=== PATIENT | male | born 1960 | race African-American/Black ===

== ENCOUNTER 2021-12-24 16:53 | Inpatient (IN) ==
--- NOTE | 2021-12-24 17:12 | Emergency Department Note ---
Impression & Plan NSTEMI (non-ST elevated myocardial infarction) ADMIT ED Provider Note HPI: The patient is a 61-year-old gentleman with history of insulin-dependent diabetes, presents emergency department with a chief complaint of transient episodes of chest discomfort for the past week. Patient presents from shelter, states that over the past week when he is at rest and when he does certain activities he is getting some substernal chest pain that is in the upper part of his chest. Patient states this is happening when he walks down the hallway he does get some upper chest discomfort. He describes it is very severe in nature. Patient states that at times at rest he just has a substernal pressure. On arrival here to the ED the patient is in no acute distress, he states he is not having much discomfort at rest. He is saturating well on room air. He is noted to be hypertensive on arrival. ROS: -Cardio: Chest pain *10 point review systems was conducted and is otherwise negative unless stated above *Outpatient medications and allergy history reviewed PE: General: Alert, NAD HEENT: Normocephalic, atraumatic Eyes: Extraocular eye movement is intact, no scleral erythema Pulmonary: Clear to auscultation bilaterally, no wheezing Cardio: Regular rate and rhythm GI: Abdomen is soft, nontender : No suprapubic tenderness MSK: No evidence of trauma or malformation of the extremities, no edema Skin: No evidence of rash Neuro: Alert, no focal deficits Psychiatric: Cooperative threat monitoring analyst: - An order was placed for continuous cardiac monitoring - Patient was noted to be in sinus rhythm with rate of 58 EKG #1 Rate: 63 Rhythm: Normal sinus rhythm Intervals: Within normal limits ST changes: No ST elevation Time: 1705 EKG #2 Rate: 55 Rhythm: Sinus bradycardia Intervals: Within normal limits ST changes: No ST elevation Time: 1842 Medical Decision Making: Patient presented to the emergency department with a chief complaint of transient episodes of chest discomfort over the past week. On arrival he is noted to be hypertensive, IV was established, lab work obtained, patient was placed on threat monitoring analyst, initially declined any pain medication as he stated he was not having much pain at rest. EKG does not show any acute ischemic changes, appears similar to previous, troponin did result markedly elevated at approximately 18,000. CT angiography of the chest was obtained that shows no evidence of pulmonary embolism, no evidence of aortic dissection. Patient was initiated on heparin drip and given aspirin here in the ED. He was ordered morphine and Zofran. Case was discussed with on-call interventional cardiology, Dr. Sapp, who agrees with heparin drip, recommend starting nitroglycerin drip as the patient does have some mild chest "pressure" but no pain on my reassessment, states the patient should be admitted to medicine with cardiology consultation. Case was discussed with the on-call hospitalist for [facility], Dr. Izaguirre, patient was admitted in stable condition for further care and interventional cardiology consultation. * CRITICAL CARE TIME: 60 minutes -Time spent at the bedside, interpretation of diagnostic studies including EKG and patient with elevated troponin and chest pain, initiation of heparin drip, discussion with subspecialty services/interventional cardiology, arrangement of admission Diagnosis: 1. Chest pain, acute 2. Elevated troponin level 3. Hypertension Disposition: Admission Scott Peters DO Emergency Medicine Past Med/Surg History Medical History (Updated 12/24/21 @ 21:06 by Scott Peters DO) Diabetes type 2, uncontrolled GERD (gastroesophageal reflux disease) Hepatitis C Hyperlipidemia Hypertension NSTEMI (non-ST elevated myocardial infarction) Schizophrenia Family History (Updated 12/24/21 @ 20:41 by Joseluis Montoya MD) Father Myocardial infarction Mother Heart disease Social History (Updated 12/24/21 @ 20:43 by Joseluis Montoya MD) Smoking Status: Current every day smoker Tobacco Type: E-cigarettes / Vaping [facility]: Yes Allergies Allergies Allergy/AdvReac Type Severity Reaction Status Date / Time No Known Allergies Allergy Unverified 12/24/21 20:04 Results & Data (ED) Vital Signs Vital Signs - 24 hr 12/24/21 17:07 12/24/21 17:14 12/24/21 17:14 Pulse Rate 62 Pulse Rate [Right Finger] Pulse Rhythm [Right Finger] Pulse Strength [Right Finger] Respiratory Rate 18 Respiratory Effort / Characteristics Non-Labored Respiratory Depth Normal Blood Pressure 179/107 H Blood Pressure [Left Arm] Blood Pressure Mean 131 Blood Pressure Mean [Left Arm] Pulse Oximetry 96 98 Oxygen Delivery Method Room Air Room Air Room Air Sepsis Recent Fever Within 48 Hours No Sepsis New/Unexplained Change in Mental Status No Sepsis Action Taken by Nursing No Action Required Pulse Oximetry Post Tiitration 98 12/24/21 17:14 12/24/21 19:31 12/24/21 19:56 Pulse Rate Pulse Rate [Right Finger] 595 H 54 L Pulse Rhythm [Right Finger] Regular Regular Pulse Strength [Right Finger] Normal Normal Respiratory Rate 18 16 Respiratory Effort / Characteristics Respiratory Depth Normal Blood Pressure Blood Pressure [Left Arm] 179/107 H 202/124 H 203/130 H Blood Pressure Mean Blood Pressure Mean [Left Arm] 131 150 154 Pulse Oximetry 95 95 Oxygen Delivery Method Room Air Room Air Sepsis Recent Fever Within 48 Hours Sepsis New/Unexplained Change in Mental Status Sepsis Action Taken by Nursing Pulse Oximetry Post Tiitration 12/24/21 20:16 Pulse Rate Pulse Rate [Right Finger] Pulse Rhythm [Right Finger] Pulse Strength [Right Finger] Respiratory Rate Respiratory Effort / Characteristics Respiratory Depth Blood Pressure Blood Pressure [Left Arm] 189/118 H Blood Pressure Mean Blood Pressure Mean [Left Arm] 141 Pulse Oximetry Oxygen Delivery Method Sepsis Recent Fever Within 48 Hours Sepsis New/Unexplained Change in Mental Status Sepsis Action Taken by Nursing Pulse Oximetry Post Tiitration Laboratory Data Result diagrams: 12/24/21 17:15 12/24/21 17:15 Lab Results 12/24/21 12/24/21 12/24/21 Range/Units 17:11 17:15 17:15 WBC 7.17 (4.8-10.8) K/ul RBC 4.65 (4.63-6.08) M/uL Hgb 13.6 L (14.0-18.0) g/dl Hct 37.4 L (40.1-51.0) % MCV 80.4 (80.0-100.0) fL MCH 29.2 (25.0-34.0) pg MCHC 36.4 H (32.0-36.0) g/dL RDW Std Deviation 40.5 (36.4-46.3) fL RDW Coeff of Margarita 14.0 (11.5-14.5) % Plt Count 248 (130-400) K/uL MPV 10.5 (9.4-12.4) fL Immature Gran % (Auto) 0.3 % Neut % (Auto) 48.9 % Lymph % (Auto) 40.9 % Fisher % (Auto) 8.5 % Eos % (Auto) 0.8 % Baso % (Auto) 0.6 % Neut # (Auto) 3.51 (1.4-6.5) K/uL Lymph # (Auto) 2.93 (1.2-3.4) K/uL Fisher # (Auto) 0.61 (0.24-0.82) K/uL Eos # (Auto) 0.06 (0-0.50) K/uL Baso # (Auto) 0.04 (0-0.2) K/uL Immature Gran # (Auto) 0.02 (0.00-0.02) K/uL PT 10.6 (9.0-12.0) Seconds INR 1.0 (0.9-1.1) APTT 25.9 (21.0-31.0) Seconds PTT Ratio 0.9 D-Dimer 1070 H* (0-500) ug/L FEU Sodium 137 (136-145) mmol/L Potassium 4.0 (3.5-5.1) mmol/L Chloride 104 (98-107) mmol/L Carbon Dioxide 24 (21-32) mmol/L Anion Gap 9 (3-11) BUN 18 (6-23) mg/dl Creatinine 1.35 (0.6-1.4) mg/dl Est Cr Clr Drug Dosing 67.4 ml/min Est GFR ( Amer) 64.8 ml/min Est GFR (Non-Af Amer) 55.9 ml/min BUN/Creatinine Ratio 13.3 (10-20) Glucose 167 H (70-99(Fasting)) mg/dl Calcium 10.0 (8.5-10.1) mg/dl Total Bilirubin 0.6 (0.2-1.0) mg/dl AST 30 (13-39) U/L ALT 26 (7-52) U/L Alkaline Phosphatase 53 (34-104) U/L Troponin I High Sens 1797.5 H* (0-20) pg/ml Total Protein 7.7 (6.0-8.3) gm/dl Albumin 4.4 (3.4-5.0) gm/dl Globulin 3.3 (2.5-4.0) gm/dl Albumin/Globulin Ratio 1.3 (0.9-2) Lipase 22 (11-82) U/L 12/24/21 Range/Units 19:06 WBC (4.8-10.8) K/ul RBC (4.63-6.08) M/uL Hgb (14.0-18.0) g/dl Hct (40.1-51.0) % MCV (80.0-100.0) fL MCH (25.0-34.0) pg MCHC (32.0-36.0) g/dL RDW Std Deviation (36.4-46.3) fL RDW Coeff of Margarita (11.5-14.5) % Plt Count (130-400) K/uL MPV (9.4-12.4) fL Immature Gran % (Auto) % Neut % (Auto) % Lymph % (Auto) % Fisher % (Auto) % Eos % (Auto) % Baso % (Auto) % Neut # (Auto) (1.4-6.5) K/uL Lymph # (Auto) (1.2-3.4) K/uL Fisher # (Auto) (0.24-0.82) K/uL Eos # (Auto) (0-0.50) K/uL Baso # (Auto) (0-0.2) K/uL Immature Gran # (Auto) (0.00-0.02) K/uL PT (9.0-12.0) Seconds INR (0.9-1.1) APTT (21.0-31.0) Seconds PTT Ratio D-Dimer (0-500) ug/L FEU Sodium (136-145) mmol/L Potassium (3.5-5.1) mmol/L Chloride (98-107) mmol/L Carbon Dioxide (21-32) mmol/L Anion Gap (3-11) BUN (6-23) mg/dl Creatinine (0.6-1.4) mg/dl Est Cr Clr Drug Dosing ml/min Est GFR ( Amer) ml/min Est GFR (Non-Af Amer) ml/min BUN/Creatinine Ratio (10-20) Glucose (70-99(Fasting)) mg/dl Calcium (8.5-10.1) mg/dl Total Bilirubin (0.2-1.0) mg/dl AST (13-39) U/L ALT (7-52) U/L Alkaline Phosphatase (34-104) U/L Troponin I High Sens 2331.3 H* D (0-20) pg/ml Total Protein (6.0-8.3) gm/dl Albumin (3.4-5.0) gm/dl Globulin (2.5-4.0) gm/dl Albumin/Globulin Ratio (0.9-2) Lipase (11-82) U/L Administered Medications Heparin Sodium/Dextrose (Heparin Sodium/Dextrose) 25,000 units in 500 mls @ 30 mls/hr IV .[id number] J LUIS; Protocol Stop: 01/23/22 19:14 Last Admin: 12/24/21 19:15 Dose: 1,500 units/hr, 30 mls/hr Documented By: LONNIE Co-signed By: JOANA Nitroglycerin/Dextrose (Nitroglycerin/D5w 100 Mcg/Ml) 250 mls @ 3 mls/hr IV .Q24H [facility] Stop: 01/23/22 18:59 Last Admin: 12/24/21 19:03 Dose: 5 mcg/min, 3 mls/hr Documented By: MARIA VICTORIA Co-signed By: LNONIE Miscellaneous Information (Patient's Allergy Info Needs Entered) 1 each N/A Q30M [facility] Stop: 01/23/22 19:59 Last Admin: 12/24/21 20:07 Dose: 1 each Documented By: LONNIE Discontinued Medications Heparin Sodium (Porcine) (Heparin Sod (Porcine) 1000 Unit/Ml) 1 units IV NOW ONE Stop: 12/24/21 19:03 Last Admin: 12/24/21 20:04 Dose: Not Given Documented By: LONNIE Heparin Sodium (Porcine) (Heparin Sod (Porcine) 1000 Unit/Ml) 7,000 units IV NOW ONE Stop: 12/24/21 20:56 Last Admin: 12/24/21 19:16 Dose: 7,000 units Documented By: LONNIE Co-signed By: JOANA Heparin Sodium/Dextrose (Heparin Iv Adult Wt-Based Standard With Bolus Protocol) 1 each IV Q5M STA; Protocol Stop: 12/24/21 19:03 Last Admin: 12/24/21 19:20 Dose: Not Given Documented By: LONNIE Hydralazine HCl (Hydralazine Hcl 20 Mg/Ml Vial) 10 mg IV NOW STA Stop: 12/24/21 19:43 Last Admin: 12/24/21 20:00 Dose: 10 mg Documented By: MES Ioversol (Optiray 320 125ml) 118 ml IV ONCE ONE Stop: 12/24/21 18:28 Last Admin: 12/24/21 18:28 Dose: 118 ml Documented By: WILSON Miscellaneous (Stat Iv Infusion Titration Per Protocol) 1 each N/A NOW STA Stop: 12/24/21 18:57 Last Admin: 12/24/21 19:20 Dose: Not Given Documented By: LONNIE Morphine Sulfate (Morphine Sulfate 4 Mg/Ml 1 Ml Carp\\Vial) 4 mg IV NOW STA Stop: 12/24/21 18:21 Last Admin: 12/24/21 18:35 Dose: 4 mg Documented By: LONNIE Ondansetron HCl (Ondansetron Inj 2 Mg/Ml 2 Ml Vial) 4 mg IV NOW STA Stop: 12/24/21 18:21 Last Admin: 12/24/21 18:35 Dose: 4 mg Documented By: LONNIE Imaging Data Radiologist's Impression: Chest X-Ray 12/24/21 17:10 XR chest 1V portable CLINICAL HISTORY: Chest Pain TECHNIQUE: Single frontal radiograph of the chest was obtained. Comparison: None available at the time of this dictation. FINDINGS: No lines and tubes are seen. The cardiomediastinal silhouette is normal. The lungs are clear. No evidence of pleural effusion or pneumothorax. IMPRESSION: No acute chest disease. ACT 112: Negative or not required by law. Electronically signed by: Jerry Perez M.D. 12/24/2021 5:29 PM Chest CTA 12/24/21 18:08 CT angio chest PE protocol CLINICAL HISTORY: PE TECHNIQUE: Multidetector row helical CT of the chest was performed with angiographic protocol. Coronal and sagittal reformations were obtained. Coronal and sagittal MIPS were obtained from the axial data set and were submitted for review. Automated dose lowering techniques and/or adjustment according to patient size were utilized for this exam. CT DOSE: 845.13 mGy.cm Comparison: Comparison is made to chest radiograph 12/24/2021 FINDINGS: Lungs and pleura: Paraseptal emphysematous changes are seen. Atelectasis versus scarring is seen in the dependent portions of the lungs. Multiple pleural-based nodules are seen including a 3 mm nodule in the left lower lobe (series 4 image 143) and a 6 mm nodule in the right middle lobe (image 121). There is also a 4 mm fissural nodule on the right (image 145). Heart and pericardium: Heart size is normal. No pericardial effusion. Vessels: No evidence of pulmonary embolism. Mediastinum and tonya: Subcentimeter lymph nodes are seen. Chest wall and lower neck: Unremarkable. Abdomen: Partial visualization of a right renal cyst. A splenule is noted. Bones: Degenerative changes in the thoracic spine. IMPRESSION: 1. No evidence of pulmonary embolism. 2. Tiny pulmonary nodules as above. According to Fleischner criteria, no follow-up is required in low risk patients, in high-risk patients, a 12 month follow-up CT can be optionally performed. 3. Emphysema. ACT 112: Negative or not required by law. Electronically signed by: Jerry Perez M.D. 12/24/2021 6:38 PM Discharge Plan Visit Data Chief Complaint: Chest Pain Stated Complaint: CHEST PAIN ED Provider: Scott Peters Discharge Problem: NSTEMI (non-ST elevated myocardial infarction) Patient Disposition: Admitted As Inpatient Forms Stand Alone Forms: [facility] Referrals Referrals: Loyda MAYER [Primary Care Provider] -
[2021-12-24 17:27] LABS: Basophils # (auto) 0.04 K/uL (0-0.2); Basophils % (auto) 0.6 %; Eosinophils # (auto) 0.06 K/uL (0-0.50); Eosinophils % (auto) 0.8 %; Hematocrit (blood only) 37.4 % (40.1-51.0); Hemoglobin 13.6 g/dl (14.0-18.0); Immature Granulocytes # (auto) 0.02 K/uL (0.00-0.02); Immature Granulocytes % (auto) 0.3 %; Lymphocytes # (auto) 2.93 K/uL (1.2-3.4); Lymphocytes % (auto) 40.9 %; Mean Corpuscular Hemoglobin 29.2 pg (25.0-34.0); Mean Corpuscular Hgb Conc 36.4 g/dL (32.0-36.0); Mean Corpuscular Volume 80.4 fL (80.0-100.0); Mean Platelet Volume 10.5 fL (9.4-12.4); Monocytes # (auto) 0.61 K/uL (0.24-0.82); Monocytes % (auto) 8.5 %; Neutrophils # (auto) 3.51 K/uL (1.4-6.5); Neutrophils % (auto) 48.9 %; Platelet Count 248 K/uL (130-400); RDW Standard Deviation 40.5 fL (36.4-46.3); Red Blood Count 4.65 M/uL (4.63-6.08); White Blood Count 7.17 K/ul (4.8-10.8)
--- NOTE | 2021-12-24 17:31 | XRay Report ---
XR chest 1V portable CLINICAL HISTORY: Chest Pain TECHNIQUE: Single frontal radiograph of the chest was obtained. Comparison: None available at the time of this dictation. FINDINGS: No lines and tubes are seen. The cardiomediastinal silhouette is normal. The lungs are clear. No evid ence of pleural effusion or pneumothorax. IMPRESSION: No acute chest disease. ACT 112: Negative or not required by law. Electronically signed by: Jerry Perez M.D. 12/24/2021 5:29 PM
[2021-12-24 17:55] LABS: Albumin Globulin Ratio 1.3 (0.9-2); Albumin Level 4.4 gm/dl (3.4-5.0); BUN Creatinine Ratio 13.3 (10-20); Bilirubin,Total 0.6 mg/dl (0.2-1.0); Creatinine Clr Calc Pharmacy 67.4 ml/min; Est GFR (African American) 64.8 ml/min; Est GFR (Non-African American) 55.9 ml/min; Globulin 3.3 gm/dl (2.5-4.0); Total Protein 7.7 gm/dl (6.0-8.3)
[2021-12-24 18:00] LABS: Partial Thromboplastin Ratio 0.9; Partial Thromboplastin Time 25.9 Seconds (21.0-31.0); Prothrombin Time 10.6 Seconds (9.0-12.0)
[2021-12-24 18:07] LABS: D Dimer 1070 ug/L FEU (0-500)
[2021-12-24 18:13] LABS: Troponin I High Sensitivity 1797.5 pg/ml (0-20)
[2021-12-24] MEDS ORDERED: ONDANSETRON INJ 2 MG/ML 2 ML VIAL IV STA (18:20)
[2021-12-24] MEDS ORDERED: MoRPHine SULFATE 4 MG/ML 1 ML CARP\\VIAL IV STA (18:20)
[2021-12-24] MEDS ORDERED: OPTIRAY 320 125ml IV ONE (18:27)
--- NOTE | 2021-12-24 18:40 | CT Scan Report ---
CT angio chest PE protocol CLINICAL HISTORY: PE TECHNIQUE: Multidetector row helical CT of the chest was performed with angiographic protocol. Garcia l and sagittal reformations were obtained. Coronal and sagittal MIPS were obtained from the axial janet a set and were submitted for review. Automated dose lowering techniques and/or adjustment according to patient size were utilized for this exam. CT DOSE: 845.13 mGy.cm Comparison: Comparison is made to chest radiograph 12/24/2021 FINDINGS: Lungs and pleura: Paraseptal emphysematous changes are seen. Atelectasis versus scarring is seen in t he dependent portions of the lungs. Multiple pleural-based nodules are seen including a 3 mm nodule i n the left lower lobe (series 4 image 143) and a 6 mm nodule in the right middle lobe (image 121). Th ere is also a 4 mm fissural nodule on the right (image 145). Heart and pericardium: Heart size is normal. No pericardial effusion. Vessels: No evidence of pulmonary embolism. Mediastinum and tonya: Subcentimeter lymph nodes are seen. Chest wall and lower neck: Unremarkable. Abdomen: Partial visualization of a right renal cyst. A splenule is noted. Bones: Degenerative changes in the thoracic spine. IMPRESSION: 1. No evidence of pulmonary embolism. 2. Tiny pulmonary nodules as above. According to Fleischner criteria, no follow-up is required in lo w risk patients, in high-risk patients, a 12 month follow-up CT can be optionally performed. 3. Emphysema. ACT 112: Negative or not required by law. Electronically signed by: Jerry Perez M.D. 12/24/2021 6:38 PM
[2021-12-24] MEDS ORDERED: STAT IV Infusion **Titration per Protocol STA ×2 (18:56→23:19)
[2021-12-24] MEDS ORDERED: NITROGLYCERIN/D5W 100MCG/ML 250 ML IV SCH ×2 (19:00→23:30)
[2021-12-24] MEDS ORDERED: Heparin IV Adult Wt-Based Standard WITH Bolus Protocol IV STA (19:02)
[2021-12-24] MEDS ORDERED: HEPARIN SOD (PORCINE) 1000 UNIT/ML IV ONE ×2 (19:02→20:55)
[2021-12-24] MEDS ORDERED: Heparin IV Adult Wt-Based Standard WITH Bolus Protocol IV SCH (19:15)
[2021-12-24] MEDS: HEPARIN SODIUM/DEXTROSE 25,000 UNITS/500 ML BAG IV SCH (19:15)
--- NOTE | 2021-12-24 19:38 | History & Physical Report ---
Date of Service December 24, 2021 Assessment & Plan (1) NSTEMI (non-ST elevated myocardial infarction): Plan: 61 year old male w/ DM2 on insulin, GERD, htn, hep c, HLD, schizophrenia, angina who presents from [facility] for a week of mid upper chest pain w/ ecg and tro p concerning for NSTEMI. - MARY JO score 4 points: 20% risk at 14 days of: all-cause mortality, new or recurrent UT, or severe recurrent ischemia requiring urgent revascularization. - ecg t wave inversions of inferolateral distribution, leads 1-2 - w/ bradycardia, caution against rate-lowering agents. - BPs noted in ED, 180s+ systolic, may represent chronicly uncontrolled htn; caution against aggressive lowering - echo ordered - trend trop - repeat ecg w/ exacerbation of chest pain - consult interventional cardiology Dr. Sapp - ICU consult because requiring nitro drip in context of developing NSTEMI. titrate per ICU protocol (2) Hypertension: Plan: - continue home lisinopril in the morning. - currently receiving nitro drip - hydralazine prn (3) Hyperlipidemia: Plan: - continue home atorvastatin 40. giving first dose now. - patient states that he had taken himself off of this and several other meds because he believed it contributed to bleeding issues in the past. Counseled on nsaid use. (4) Schizophrenia: Plan: - continue home sertraline. Home trihexyphenidyl and perphenazine: deferring to day team to resume. (5) GERD (gastroesophageal reflux disease): Plan: - continue home PPI (6) Diabetes type 2, uncontrolled: Plan: - ICU hyperglycemia protocol (7) Tobacco use disorder: Plan: - current nicotine vaper, unknown amount - consider nicotine patch if requested (8) Lung nodules: Plan: - per CTA: "Multiple pleural-based nodules are seen including a 3 mm nodule in the left lower lobe (series 4 image 143) and a 6 mm nodule in the right middle lobe (image 121). There is also a 4 mm fissural nodule on the right (image 145). According to Fleischner criteria, no follow-up is required in low risk patients, in high-risk patients, a 12 month follow-up CT can be optionally performed." - patient may be considered high risk from his tobacco use. consider 12 month f/u CT Plan FEN/GI: NPO, allow meds. No IV fluids ordered. anticoag: heparin drip code: full dispo: ICU History of Present Illness Chief Complaint: chest pain Primary Care Provider: [facility] 61 year old male w/ DM2 on insulin, GERD, htn, hep c, HLD, schizophrenia, angina who presents from [facility] for episodes of mid-upper chest pain since 12/19/21. It is exertional such as with walking and is also exacerbated by certain positions/body movements. He has had daily episodes this week and the pain would last for hours, relieved by baby aspirin and nitroglycerin. He describes it as a throbbing pain in the upper chest just below his neck though per EMS report, was midsternal pressure. Per [facility] records, he was taking too many of the nitroglycerins so they discontinued and started isosorbide dinitrate. Today, at 130pm, patient was walking casually on his way to a [employer] game when he developed 10/10 chest pain at its worse. There was associated diaphoresis and radiation to his bilateral arms, no nausea. There was some discomfort at his left ribs below the chest. 2 aspirins did not provide relief of his symptoms and ecg showed new t wave inversions concerning for developing ischemia, so he was brought to [facility] ED. His pain did subside prior to ED arrival after >1-2 hours duration of discomfort, but has had intermittently. His current pain level is 1/10 and is receiving nitro drip at 5 mcg/hr. ED course: Heparin drip, nitro drip, and morphine. BP was elevated to 203/130 w/ HR in the 50s. Hydralazine 10mg IV. notable data: d dimer 1070. Cr 1.35. hx trop 1797.5, 2331 after 2 hours. chest CTA w/o PE. ecg w/ t wave inversions in leads 1-[address]-T changes. new today compared to 12/22/21. home meds from paperwork reviewed: lasix 20 daily. isordil 10mg daily. lisinopril 40 daily. omeprazole 40 daily. perphenazine 16 qhs. sertraline 100 daily. trihexyphenidyl bid. novolin R SSI. Novolin N 26u bid. atenolol 25 daily (? per records, unclear if taking). Allergies Allergy/AdvReac Type Severity Reaction Status Date / Time No Known Allergies Allergy Unverified 12/24/21 20:04 Home Medications Medication Instructions Recorded Confirmed Type atenolol 25 mg tablet 25 mg PO DAILY 12/24/21 12/24/21 History atorvastatin 40 mg tablet 40 mg PO DAILY 12/24/21 12/24/21 History furosemide 20 mg tablet (Lasix) 20 mg PO DAILY 12/24/21 12/24/21 History insulin NPH isoph U-100 human 100 26 unit subcut BID 12/24/21 12/24/21 History unit/mL subcutaneous suspension (Novolin N NPH U-100 Insulin isophane) insulin regular human 100 unit/mL 1 sliding scale dose subcut 12/24/21 12/24/21 History injection solution (Novolin R USEASDIRECTD Regular U-100 Insulin) isosorbide dinitrate 10 mg tablet 10 mg PO DAILY 12/24/21 12/24/21 History lisinopril 40 mg tablet 40 mg PO DAILY 12/24/21 12/24/21 History nitroglycerin 0.4 mg sublingual 0.4 mg sublingual QID PRN Chest 12/24/21 12/24/21 History tablet (Nitrostat) Pain omeprazole 40 mg capsule,delayed 40 mg PO DAILY 12/24/21 12/24/21 History release perphenazine 16 mg tablet 16 mg PO HS 12/24/21 12/24/21 History sertraline 100 mg tablet 100 mg PO DAILY 12/24/21 12/24/21 History trihexyphenidyl 2 mg tablet 2 mg PO BID 12/24/21 12/24/21 History Past Med/Surg History Medical History Diabetes type 2, uncontrolled GERD (gastroesophageal reflux disease) Hepatitis C Hyperlipidemia Hypertension Lung nodules NSTEMI (non-ST elevated myocardial infarction) Schizophrenia Tobacco use disorder Family History Father Myocardial infarction Mother Heart disease Social History Smoking Status: Former smoker Tobacco Type: E-cigarettes / Vaping Hx Alcohol Use: No Hx Substance Use: No Beliefs That Will Affect Care: None Current Living Situation: Other Current Living Situation Comment: [facility] Feels Safe at Home: Yes Safety Concerns: Feels Safe At This Time Assistive Devices: None Review of Systems Review of Systems: All systems reviewed & are unremarkable except as noted in HPI & below Denies fever, chills, headache, blurry vision, or urinary symptoms. Physical Exam Physical Exam: General: Grossly A&O. NAD. Cooperative. HEENT: Atraumatic, normocephalic. EOMI. Oropharynx wnl. MMM. Pulm: CTAB. -wheezes, -rales, -rhonchi. No respiratory distress. Cardiac: RRR, -mrg. Radial pulses intact and symmetrical. No lower extremity edema. Abdominal: Nontender, nondistended, soft. Integ: Warm, dry, intact. Msk: Moving all extremities. Results & Data Results & Data ([facility]) Vital Signs (Past 12 Hours) Vital Signs Pulse Pulse Resp BP BP Pulse Ox O2 Del Method 12/24/21 19:31 54 L 16 202/124 H 95 Room Air 12/24/21 17:14 595 H 18 179/107 H 95 Room Air 12/24/21 17:14 Room Air 12/24/21 17:14 98 Room Air 12/24/21 17:07 62 18 179/107 H 96 Room Air Laboratory Results Cardiac Enzymes 12/24/21 Range/Units 17:15 AST 30 (13-39) U/L Troponin I High Sens 1797.5 H* (0-20) pg/ml Coagulation 12/24/21 Range/Units 17:11 PT 10.6 (9.0-12.0) Seconds APTT 25.9 (21.0-31.0) Seconds CBC 12/24/21 Range/Units 17:15 WBC 7.17 (4.8-10.8) K/ul RBC 4.65 (4.63-6.08) M/uL Hgb 13.6 L (14.0-18.0) g/dl Hct 37.4 L (40.1-51.0) % Plt Count 248 (130-400) K/uL Neut # (Auto) 3.51 (1.4-6.5) K/uL Lymph # (Auto) 2.93 (1.2-3.4) K/uL [place] # (Auto) 0.61 (0.24-0.82) K/uL Eos # (Auto) 0.06 (0-0.50) K/uL Baso # (Auto) 0.04 (0-0.2) K/uL Comprehensive Metabolic Panel 12/24/21 Range/Units 17:15 Sodium 137 (136-145) mmol/L Potassium 4.0 (3.5-5.1) mmol/L Chloride 104 (98-107) mmol/L Carbon Dioxide 24 (21-32) mmol/L BUN 18 (6-23) mg/dl Creatinine 1.35 (0.6-1.4) mg/dl Glucose 167 H (70-99(Fasting)) mg/dl Calcium 10.0 (8.5-10.1) mg/dl AST 30 (13-39) U/L ALT 26 (7-52) U/L Alkaline Phosphatase 53 (34-104) U/L Total Protein 7.7 (6.0-8.3) gm/dl Albumin 4.4 (3.4-5.0) gm/dl Intake and Output 12/24/21 12/24/21 12/24/21 06:59 14:59 22:59 Other: Weight 103.9 kg Patient Weight 12/25/21 06:59 Weight 103.9 kg Diagnostic Findings Chest X-Ray 12/24/21 17:10 XR chest 1V portable CLINICAL HISTORY: Chest Pain TECHNIQUE: Single frontal radiograph of the chest was obtained. Comparison: None available at the time of this dictation. FINDINGS: No lines and tubes are seen. The cardiomediastinal silhouette is normal. The lungs are clear. No evidence of pleural effusion or pneumothorax. IMPRESSION: No acute chest disease. ACT 112: Negative or not required by law. Electronically signed by: Jerry Perez M.D. 12/24/2021 5:29 PM Chest CTA 12/24/21 18:08 CT angio chest PE protocol CLINICAL HISTORY: PE TECHNIQUE: Multidetector row helical CT of the chest was performed with angiographic protocol. Coronal and sagittal reformations were obtained. Coronal and sagittal MIPS were obtained from the axial data set and were submitted for review. Automated dose lowering techniques and/or adjustment according to patient size were utilized for this exam. CT DOSE: 845.13 mGy.cm Comparison: Comparison is made to chest radiograph 12/24/2021 FINDINGS: Lungs and pleura: Paraseptal emphysematous changes are seen. Atelectasis versus scarring is seen in the dependent portions of the lungs. Multiple pleural-based nodules are seen including a 3 mm nodule in the left lower lobe (series 4 image 143) and a 6 mm nodule in the right middle lobe (image 121). There is also a 4 mm fissural nodule on the right (image 145). Heart and pericardium: Heart size is normal. No pericardial effusion. Vessels: No evidence of pulmonary embolism. Mediastinum and tonya: Subcentimeter lymph nodes are seen. Chest wall and lower neck: Unremarkable. Abdomen: Partial visualization of a right renal cyst. A splenule is noted. Bones: Degenerative changes in the thoracic spine. IMPRESSION: 1. No evidence of pulmonary embolism. 2. Tiny pulmonary nodules as above. According to Fleischner criteria, no follow-up is required in low risk patients, in high-risk patients, a 12 month follow-up CT can be optionally performed. 3. Emphysema. ACT 112: Negative or not required by law. Electronically signed by: Jerry Perez M.D. 12/24/2021 6:38 PM ECG Additional Comments: per my interpretation: sinus nimesh 55. inverted T waves leads 1-2. normal axis and intervals. Nonspecific ST-T changes. Code Status & VTE Plan Code Status full VTE Prophylaxis Plan VTE Prophylaxis will be ordered: Yes Supervising Physician Co-Signing Physician Notes Attending addendum: I have physically seen this patient, have supervised the medical residents activities, and agree with the H&P unless as otherwise noted. Assessment and Plan: NSTEMI/hypertension-- Placed on heparin drip and nitroglycerin drip in the emergency department per request of interventional cardiology The patient will be admitted to the ICU for serial cardiac enzymes, serial EKG's, cardiac rhythm monitoring and a 2-D echocardiogram with Dopplers. Consult interventional cardiology Dr. Sapp Aspirin 81 mg daily Check a fasting lipid panel and hemoglobin A1c Continue lisinopril Hydralazine 10 mg IV every 4 hours as needed systolic blood pressure greater than 150 Hyperlipidemia- Start atorvastatin 40 mg daily. He has been on this in the past but stopped on his own Check a fasting lipid panel Diabetes mellitus- ICU hyperglycemic protocol Tobacco use disorder- Tobacco cessation counseling Schizophrenia- Continue sertraline, trihexyphenidyl and perphenazine Remaining orders and notations as noted Resident Activity Tracking Resident Involvement: Resident Care Provided Care Provided: Adult [facility] Medicine
[2021-12-24] MEDS ORDERED: hydrALAZINE HCL 20 MG/ML VIAL IV STA (19:42)
[2021-12-24] MEDS: Patient's ALLERGY Info needs ENTERED SCH (20:07)
[2021-12-24] MEDS ORDERED: ICU PROTOCOL FOR HYPERGLYCEMIA PRN (22:53)
--- NOTE | 2021-12-24 23:20 | Critical Care Consultation ---
Date of Consultation December 24, 2021 Assessment & Plan (1) Admitted to intensive care unit: Reason Critically Ill: 61-year-old male presenting with NSTEMI with concerns for possible unstable angina requiring nitroglycerin drips as well as heparin. NEURO - * CAM ICU: NEGATIVE * Schizophrenia: * Continue home psychiatric medications as previously prescribed. CARDIAC/VASCULAR - * NSTEMI: * Patient presenting with chest pain and hypertension. * EKG demonstrates no ST elevations. * Troponin trending upward. * Responded well to IV nitroglycerin. * Continue heparin drip for now. * Patient's comorbidities including hypertension, hyperlipidemia, diabetes, and smoking are certainly suspicious for possible underlying ACS. * A.m. echocardiogram. * Appreciate cardiology consultation. * EKG: Sinus bradycardia [address] depressions appreciated inferiorly and laterally. QTc 411 ms. * Monitor on telemetry. RESPIRATORY - * Tobacco abuse GI/NUTRITION - * N.p.o. overnight. RENAL/LYTES - * No significant electrolyte derangements. - * Patient has complained of some hematuria. Will check urinalysis as the patie nt does have a history of smoking to evaluate for possible consult of blood and risk for bladder CA. ENDO - * DMII * BSGs per unit protocol. ISS --> gtt per unit policy. HEME - * Stable H&H ID - * No concerns for infectious contribution at this time. LINES/IV ACCESS - * PIVs x2 DVT PROPHYLAXIS - * Heparin gtt * SCDs I have personally spent 32 minutes of critical care time in the direct management of this patient. This is a life/limb threatening event. This includes time spent evaluating patient, direct bedside care, chart review, placing orders, interpretation of diagnostic studies, discussion with consultants, patient, and family members, as well as other required patient management activities. This time is exclusive of all separately billable procedures, and teaching time and separate from and in addition to any other critical care service time. Thank you for allowing us to participate in the care of this patient. Please refer to my attending physician's documentation for any further recommendations. (2) Chest pain: (3) NSTEMI (non-ST elevated myocardial infarction): (4) Hypertension: (5) Hyperlipidemia: (6) Schizophrenia: (7) Diabetes type 2, uncontrolled: (8) Tobacco use disorder: History of Present Illness Attending Physician: Jeromy Valdez MD History of Present Illness Patient is a 61-year-old incarcerated male with significant past medical history of diabetes, hypertension, hyperlipidemia, schizophrenia, and smoking history wh o presented the emergency department earlier today with a weeklong history of chest pain with exertion. He reports that his symptoms started shortly after he discontinued his home prescriptions. He reports that he was concerned as he was noticing some blood in his urine and semen so he decided to stop his prescription medications. He reports that his pain was typically with activity, but does admit that his symptoms have worsened significantly over the past 24 to 48 hours. Patient did have some ST depressions in the emergency department. He was started on nitro review for chest pain as well as hypertension and placed on heparin secondary to elevated troponin. Upon evaluation in the ICU, the patient is awake, alert, and oriented. He denies complaints of chest pain at this time. Patient denies complaints of headaches, dizziness, lightheadedness, chest pain, palpitations, pleuritic pain, shortness of breath, nausea, vomiting, or abdominal discomfort. Allergies Allergy/AdvReac Type Severity Reaction Status Date / Time No Known Allergies Allergy Unverified 12/24/21 20:04 Home Medications Medication Instructions Recorded Confirmed Type atenolol 25 mg tablet 25 mg PO DAILY 12/24/21 12/24/21 History atorvastatin 40 mg tablet 40 mg PO DAILY 12/24/21 12/24/21 History furosemide 20 mg tablet (Lasix) 20 mg PO DAILY 12/24/21 12/24/21 History insulin NPH isoph U-100 human 100 26 unit subcut BID 12/24/21 12/24/21 History unit/mL subcutaneous suspension (Novolin N NPH U-100 Insulin isophane) insulin regular human 100 unit/mL 1 sliding scale dose subcut 12/24/21 12/24/21 History injection solution (Novolin R USEASDIRECTD Regular U-100 Insulin) isosorbide dinitrate 10 mg tablet 10 mg PO DAILY 12/24/21 12/24/21 History lisinopril 40 mg tablet 40 mg PO DAILY 12/24/21 12/24/21 History nitroglycerin 0.4 mg sublingual 0.4 mg sublingual QID PRN Chest 12/24/21 12/24/21 History tablet (Nitrostat) Pain omeprazole 40 mg capsule,delayed 40 mg PO DAILY 12/24/21 12/24/21 History release perphenazine 16 mg tablet 16 mg PO HS 12/24/21 12/24/21 History sertraline 100 mg tablet 100 mg PO DAILY 12/24/21 12/24/21 History trihexyphenidyl 2 mg tablet 2 mg PO BID 12/24/21 12/24/21 History Patient History Medical History Diabetes type 2, uncontrolled GERD (gastroesophageal reflux disease) Hepatitis C Hyperlipidemia Hypertension Lung nodules NSTEMI (non-ST elevated myocardial infarction) Schizophrenia Tobacco use disorder Family History Father Myocardial infarction Mother Heart disease Social History Smoking Status: Former smoker Tobacco Type: E-cigarettes / Vaping Hx Alcohol Use: No Hx Substance Use: No Beliefs That Will Affect Care: None Current Living Situation: Other Current Living Situation Comment: [place] [facility] [place] Feels Safe at Home: Yes Safety Concerns: Feels Safe At This Time Assistive Devices: None Review of Systems Review of Systems: A complete 10 point review of systems was reviewed with the patient with pertinent positives and negatives as per history of present illness. All else were negative. Physical Exam Physical Exam: VITAL SIGNS - Vital signs and nursing notes were reviewed. GENERAL - 61-year-old male appearing his stated age who is in no acute distress. Communicates well with provider and answers questions appropriately. HEAD - NC/AT. EYES - PERRL with EOMI bilaterally. Sclera anicteric. EARS - No deformities of external structures noted on gross examination bilaterally. NOSE - Midline and without cyanosis. No epistaxis or purulent drainage noted. MOUTH/OROPHARYNX - Without perioral cyanosis. Buccal mucosa pink and moist and without leukoplakia. NECK - Neck with FROM. Supple to palpation. LUNGS - Chest wall symmetric without accessory muscle use, intercostals retractions, or central cyanosis. Normal vesicular breath sounds CTA B/L. No wheezes, rales, or rhonchi appreciated. CARDIAC - RRR with S1/S2. No murmur, rubs, or gallops appreciated. No reproducible tenderness to palpation appreciated over the anterior chest wall. ABDOMEN - Abdominal contour obese without pulsations or visible masses. BS normoactive all four quadrants. No tenderness, palpable masses, hepatosplenomeg conchita, or ascites noted. EXTREMITIES - No clubbing or peripheral cyanosis. No pretibial edema present. +3/5 radial and dorsalis pedis pulses palpated throughout. +5/5 strength noted in UE/LE bilaterally. NEUROLOGIC - Cranial nerves II through XII grossly intact. Sensory intact to light touch throughout. PSYCH - A&Ox3 and cooperates fully with examiner. Pt is very pleasant and interacts well with examiner. Results & Data Results & Data ([facility]) Vital Signs (Past 12 Hours) Vital Signs Pulse Pulse Resp BP BP Pulse Ox O2 Del Method 12/24/21 21:19 176/105 H 12/24/21 20:16 189/118 H 12/24/21 19:56 203/130 H 12/24/21 19:31 54 L 16 202/124 H 95 Room Air 12/24/21 17:14 595 H 18 179/107 H 95 Room Air 12/24/21 17:14 Room Air 12/24/21 17:14 98 Room Air 12/24/21 17:07 62 18 179/107 H 96 Room Air Coding Level of Care Code Critical Care 1st 30-74 mins Diagnoses Admitted to intensive care unit Z78.9 Chest pain R07.9 NSTEMI (non-ST elevated myocardial infarction) I21.4 Hypertension I10 Hyperlipidemia E78.5 Schizophrenia F20.9 Diabetes type 2, uncontrolled Tobacco use disorder F17.200
[2021-12-25] MEDS: ATORVASTATIN 40 MG TAB PO SCH ×2 (00:22→20:05)
[2021-12-25 01:35] LABS: Partial Thromboplastin Ratio 2.4
[2021-12-25 01:37] LABS: Partial Thromboplastin Time 66.9 Seconds (21.0-31.0)
[2021-12-25 02:42] LABS: Appearance Urine Clear (Clear); Bacteria Urine Automated Negative (Negative); Bilirubin Urine Negative (Negative); Blood Urine Negative (Negative); Color Urine Yellow; Glucose Urine UA 2+ (Negative); Ketones Urine Negative (Negative); Leukocyte Esterase Urine Negative (Negative); Nitrite Urine Negative (Negative); Protein Urine 1+ (Negative); RBC Urine Automated 0-4 /hpf (0-4); Specific Gravity Urine 1.039 (1.000-1.030); Urobilinogen Urine Negative (Negative); WBC Urine Automated 0 /hpf (0-5); pH Urine 6.5 (4.5-7.5)
[2021-12-25 03:13] LABS: Hematocrit (blood only) 34.8 % (40.1-51.0); Hemoglobin 12.4 g/dl (14.0-18.0); Mean Corpuscular Hemoglobin 29.6 pg (25.0-34.0); Mean Corpuscular Hgb Conc 35.6 g/dL (32.0-36.0); Mean Corpuscular Volume 83.1 fL (80.0-100.0); Mean Platelet Volume 10.2 fL (9.4-12.4); Platelet Count 216 K/uL (130-400); RDW Standard Deviation 42.5 fL (36.4-46.3); Red Blood Count 4.19 M/uL (4.63-6.08); White Blood Count 7.66 K/ul (4.8-10.8)
[2021-12-25 03:31] LABS: Albumin Globulin Ratio 1.3 (0.9-2); Albumin Level 3.9 gm/dl (3.4-5.0); BUN Creatinine Ratio 11.6 (10-20); Bilirubin,Total 0.6 mg/dl (0.2-1.0); Calcium 9.4 mg/dl (8.5-10.1); Chol HDL Ratio 5.3 (0-5); Creatinine Clr Calc Pharmacy 69.4 ml/min; Est GFR (African American) 68.4 ml/min; Magnesium 1.9 mg/dl (1.7-2.4); Potassium 4.3 mmol/L (3.5-5.1); Total Protein 6.9 gm/dl (6.0-8.3)
[2021-12-25] MEDS: lisinopril 40 MG TAB PO SCH (07:58)
[2021-12-25] MEDS: SERTRALINE HCL 100 MG TABLET PO SCH (07:58)
[2021-12-25] MEDS ORDERED: ATORVASTATIN 40 MG TAB PO SCH (09:00)
[2021-12-25] MEDS ORDERED: PANTOprazole 40 MG TAB PO SCH (09:00)
[2021-12-25 09:06] LABS: Partial Thromboplastin Ratio 2.9
--- NOTE | 2021-12-25 09:37 | Electrocardiogram Report ---
Test Reason : Blood Pressure : / mmHG Vent. Rate : 063 BPM Atrial Rate : 063 BPM P-R Int : 160 ms QRS Dur : 102 ms QT Int : 434 ms P-R-T Axes : 037 012 150 degrees QTc Int : 444 ms Normal sinus rhythm Left ventricular hypertrophy with repolarization abnormality Abnormal ECG No previous ECGs available Confirmed by Perfecto Rivera ([id number]) on 12/25/2021 9:36:50 AM Referred By: [facility] Confirmed By:Perfecto Rivera
--- NOTE | 2021-12-25 09:39 | Electrocardiogram Report ---
Test Reason : Blood Pressure : / mmHG Vent. Rate : 055 BPM Atrial Rate : 055 BPM P-R Int : 160 ms QRS Dur : 104 ms QT Int : 430 ms P-R-T Axes : 028 018 185 degrees QTc Int : 411 ms Sinus bradycardia Voltage criteria for left ventricular hypertrophy with repolarization abnormality Abnormal ECG When compared with ECG of 24-DEC-2021 17:05, (unconfirmed) The ST/T changes are worse Confirmed by Perfecto Rivera ([id number]) on 12/25/2021 9:38:53 AM Referred By: [facility] Confirmed By:Perfecto Rivera
--- NOTE | 2021-12-25 10:42 | Critical Care Progress Note ---
Date of Service December 25, 2021 Assessment & Plan (1) Admitted to intensive care unit: (2) Chest pain: (3) NSTEMI (non-ST elevated myocardial infarction): (4) Hypertension: (5) Hyperlipidemia: (6) Schizophrenia: (7) Diabetes type 2, uncontrolled: (8) Tobacco use disorder: Plan Reason Critically Ill: 61-year-old male presenting with NSTEMI with concerns for possible unstable angina requiring nitroglycerin drips as well as heparin. NEURO - * CAM ICU: NEGATIVE * Schizophrenia: * Continue home psychiatric medications as previously prescribed. CARDIAC/VASCULAR - * NSTEMI: * Patient presenting with chest pain and hypertension. * EKG demonstrates no ST elevations. * Troponin trending upward. * Continue to wean nitro gtt * Continue heparin drip for now. * Initiate heparin * Patient's comorbidities including hypertension, hyperlipidemia, diabetes, and smoking are certainly suspicious for possible underlying ACS. * Echo results pending * Appreciate cards recs. Likely cath Monday per Dr. Rivera RESPIRATORY - * No issues GI/NUTRITION - * Ok to start cardiac diet. Will increase PPI to BID RENAL/LYTES - * No significant electrolyte derangements. - * Urinalysis without blood. 1+ protein and glucose. ENDO - * DMII * Pharmacy hyperglycemia protocol HEME - * Stable H&H ID - * No concerns for infectious contribution at this time. LINES/IV ACCESS - * PIVs x2 DVT PROPHYLAXIS - * Heparin gtt * SCDs Discussed with bedside nurse and Dr. Rivera who is the patient's special effects makeup artist. CRITICAL CARE TIME - I have personally spent 39 minutes of critical care time in the direct management of this patient. This is a life/limb threatening event. This includes time spent evaluating patient, direct bedside care, chart review, placing orders, interpretation of diagnostic studies, discussion with consultants, patient, and family members, as well as other required patient management activities. This time is exclusive of all separately billable procedures, and teaching time and separate from and in addition to any other critical care service time. Admission and Anticipated Discharge Date Admission Date: December 24, 2021 Review of Systems Review of Systems: All systems reviewed & are unremarkable except as noted in HPI & below Physical Exam Physical Exam: VITAL SIGNS - Vital signs and nursing notes were reviewed. GENERAL - 61-year-old male appearing his stated age who is in no acute distress. Communicates well with provider and answers questions appropriately. HEAD - NC/AT. EYES - PERRL with EOMI bilaterally. Sclera anicteric. EARS - No deformities of external structures noted on gross examination bilaterally. NOSE - Midline and without cyanosis. No epistaxis or purulent drainage noted. MOUTH/OROPHARYNX - Without perioral cyanosis. Buccal mucosa pink and moist and without leukoplakia. NECK - Neck with FROM. Supple to palpation. LUNGS - Chest wall symmetric without accessory muscle use, intercostals retractions, or central cyanosis. Normal vesicular breath sounds CTA B/L. No wheezes, rales, or rhonchi appreciated. CARDIAC - RRR with S1/S2. No murmur, rubs, or gallops appreciated. No reproducible tenderness to palpation appreciated over the anterior chest wall. ABDOMEN - Abdominal contour obese without pulsations or visible masses. BS normoactive all four quadrants. No tenderness, palpable masses, hepatosplenomegaly, or ascites noted. EXTREMITIES - No clubbing or peripheral cyanosis. No pretibial edema present. +3/5 radial and dorsalis pedis pulses palpated throughout. +5/5 strength noted in UE/LE bilaterally. NEUROLOGIC - Cranial nerves II through XII grossly intact. Sensory intact to light touch throughout. PSYCH - A&Ox3 and cooperates fully with examiner. Pt is very pleasant and interacts well with examiner. Results & Data Results & Data ([facility]) Vital Signs (Past 12 Hours) Vital Signs Temp Pulse Resp BP Pulse Ox O2 Del Method 12/25/21 06:00 61 12 131/82 12/25/21 05:30 60 18 185/95 H 94 12/25/21 05:00 63 18 171/96 H 93 Room Air 12/25/21 04:01 61 6 L 94 12/25/21 04:00 60 16 151/83 H 94 Room Air 12/25/21 03:01 59 L 13 136/79 96 12/25/21 04:00 36.7 C 12/25/21 02:00 56 L 16 166/86 H 12/25/21 01:00 56 L 14 164/90 H 96 Room Air 12/25/21 00:24 61 18 145/86 H 93 Room Air 12/24/21 23:51 169/108 H 12/24/21 23:50 62 13 154/101 H 92 12/24/21 23:15 64 0 L 95 12/24/21 23:00 77 20 172/116 H 96 Room Air Coding Level of Care Code Critical Care 1st 30-74 mins Diagnoses Admitted to intensive care unit Z78.9 Chest pain R07.9 NSTEMI (non-ST elevated myocardial infarction) I21.4 Hypertension I10 Hyperlipidemia E78.5 Schizophrenia F20.9 Diabetes type 2, uncontrolled Tobacco use disorder F17.200 Time Spent (min) 39
[2021-12-25] MEDS: ASPIRIN 81 MG CHEW PO SCH (10:50)
[2021-12-25] MEDS ORDERED: PHARMACY GLYCEMIC MGMT CONSULT PRN (10:51)
--- NOTE | 2021-12-25 10:57 | Cardiology Consultation ---
Date of Consultation December 25, 2021 History of Present Illness Reason for Consultation: Non-ST elevation myocardial infarction Attending Physician: Thierno Bautista MD History of Present Illness Patient has noted increasing chest tightness and chest pressure in the center of his chest radiating up towards his throat over the last number of weeks. It occurs with activity and tends to improve at rest. At the present he was given sublingual nitroglycerin with some improvement in his symptoms. He notes he has been using the nitroglycerin more frequently. His symptoms progressed and when he was having resting discomfort yesterday and was admitted to the hospital. His troponin is elevated and his EKG is consistent with ischemia. This morning he has very mild discomfort still in his chest. He notes overall though it is significantly better. He denies any lightheadedness dizziness presyncope syncope. He denies any lower extremity edema. He is not short of breath. He denies any nausea or diaphoresis. He notes he is hungry. He notes that the longterm sometime ago he had hematuria. He thought this was related to taking aspirin. Here in the hospital he has had no hematuria while on heparin and his UA was negative for blood. He denies any dark stools or black stools. His appetite and weight have been stable. He notes for about 2 years he stopped taking his medications as he just thought he was overmedicated. The rest of a complete her systems otherwise negative. Allergies Allergy/AdvReac Type Severity Reaction Status Date / Time No Known Allergies Allergy Unverified 12/24/21 20:04 Home Medications Medication Instructions Recorded Confirmed Type atenolol 25 mg tablet 25 mg PO DAILY 12/24/21 12/24/21 History atorvastatin 40 mg tablet 40 mg PO DAILY 12/24/21 12/24/21 History furosemide 20 mg tablet (Lasix) 20 mg PO DAILY 12/24/21 12/24/21 History insulin NPH isoph U-100 human 100 26 unit subcut BID 12/24/21 12/24/21 History unit/mL subcutaneous suspension (Novolin N NPH U-100 Insulin isophane) insulin regular human 100 unit/mL 1 sliding scale dose subcut 12/24/21 12/24/21 History injection solution (Novolin R USEASDIRECTD Regular U-100 Insulin) isosorbide dinitrate 10 mg tablet 10 mg PO DAILY 12/24/21 12/24/21 History lisinopril 40 mg tablet 40 mg PO DAILY 12/24/21 12/24/21 History nitroglycerin 0.4 mg sublingual 0.4 mg sublingual QID PRN Chest 12/24/21 12/24/21 History tablet (Nitrostat) Pain omeprazole 40 mg capsule,delayed 40 mg PO DAILY 12/24/21 12/24/21 History release perphenazine 16 mg tablet 16 mg PO HS 12/24/21 12/24/21 History sertraline 100 mg tablet 100 mg PO DAILY 12/24/21 12/24/21 History trihexyphenidyl 2 mg tablet 2 mg PO BID 12/24/21 12/24/21 History Patient History Medical History Diabetes type 2, uncontrolled GERD (gastroesophageal reflux disease) Hepatitis C Hyperlipidemia Hypertension Lung nodules NSTEMI (non-ST elevated myocardial infarction) Schizophrenia Tobacco use disorder Family History Father Myocardial infarction Mother Heart disease Social History Smoking Status: Former smoker Tobacco Type: E-cigarettes / Vaping Hx Alcohol Use: No Hx Substance Use: No Beliefs That Will Affect Care: None Current Living Situation: Other Current Living Situation Comment: [facility] Feels Safe at Home: Yes Safety Concerns: Feels Safe At This Time Assistive Devices: None Results & Data ([facility]) Vital Signs (Past 12 Hours) Vital Signs Temp Pulse Resp BP Pulse Ox O2 Del Method 12/25/21 10:30 54 L 20 96 12/25/21 10:30 136/87 12/25/21 10:01 60 15 97 12/25/21 10:01 131/86 12/25/21 10:00 71 21 96 12/25/21 09:30 58 L 12 97 12/25/21 09:30 139/81 12/25/21 09:00 57 L 22 97 12/25/21 09:00 138/85 12/25/21 08:30 61 18 98 12/25/21 08:30 139/83 12/25/21 08:02 59 L 26 H 97 12/25/21 08:02 152/94 H 12/25/21 08:00 67 18 96 12/25/21 07:30 70 9 L 98 12/25/21 07:30 123/79 12/25/21 07:00 60 2 L 12/25/21 07:00 135/78 12/25/21 10:41 36.8 C 12/25/21 06:00 61 12 131/82 12/25/21 05:30 60 18 185/95 H 94 12/25/21 05:00 63 18 171/96 H 93 Room Air 12/25/21 04:01 61 6 L 94 12/25/21 04:00 60 16 151/83 H 94 Room Air 12/25/21 03:01 59 L 13 136/79 96 12/25/21 04:00 36.7 C 12/25/21 02:00 56 L 16 166/86 H 12/25/21 01:00 56 L 14 164/90 H 96 Room Air 12/25/21 00:24 61 18 145/86 H 93 Room Air 12/24/21 23:51 169/108 H 12/24/21 23:50 62 13 154/101 H 92 12/24/21 23:15 64 0 L 95 12/24/21 23:00 77 20 172/116 H 96 Room Air He is awake alert and oriented x3 he is in no acute distress HEENT 2+ carotid upstrokes nodes or carotid bruits Lungs: Clear to auscultation bilaterally no rales no rales rhonchi or wheezing Heart: Regular rate and rhythm no appreciable murmurs rubs or gallops Abdomen: Soft nontender senna positive bowel sounds Extremities: No clubbing cyanosis or edema Psychiatric his affect appear appropriate His labs EKG and CAT scan of his chest were reviewed. IMPRESSIONS: 1. Non-ST elevation myocardial infarction 2. Hypertension 3. Diabetes mellitus type 2 4. Tobacco abuse stopping 3 days ago 5. Schizophrenia As I discussed with the fire battalion chief. I would continue with aggressive medical therapy with a plan to cath him on Monday. If he were to have worsening discomfort between now and Monday then we would proceed urgently to the Jalousie Installer. He should remain on heparin, nitroglycerin, and aspirin. If he has additional pain I would recommend Plavix loading him with 600 mg and then 75 mg thereafter. He is on a proton pump inhibitor at this time to protect his stomach. He notes a history of hematuria but he has not had any bleeding here while on a heparin drip which is therapeutic. His echocardiogram is pending but his carotid upstrokes felt brisk suggesting his LV function is preserved. Discussed the risks and benefits of cardiac catheterization with him. He wishes to proceed with catheterization. I discussed with him that from my standpoint he would likely be on 4 or 5 drugs to reduce his risk of progressive cardiovascular events. We discussed why it is important to take these medications and the idea that medical therapy is quite effective with regards to reducing his risk of cardiovascular disease. We discussed this would include aspirin, Plavix, and KETTY inhibitor which she is already on, statin therapy, and there is no room for beta-blockers but he would likely benefit from SGT L2 inhibitors given his diabetes and presumed heart disease. We will continue to follow him with you.
[2021-12-25] MEDS ORDERED: ISOSORBIDE MONO EXTENDED REL 30 MG TABCR PO ONE (11:00)
[2021-12-25] MEDS ORDERED: GLUCAGON FOR INJ 1 MG VIAL IM PRN (11:15)
[2021-12-25] MEDS ORDERED: GLUCOSE 40% GEL 15 GM TUBE PO PRN (11:15)
[2021-12-25] MEDS ORDERED: DEXTROSE 50% 50 ML SYRINGE IV PRN (11:15)
[2021-12-25] MEDS ORDERED: GLUCOSE 10 TAB/TUBE PO PRN (11:15)
[2021-12-25] MEDS ORDERED: CARBOHYDRATES FOR HYPOGLYCEMIA PO PRN (11:15)
--- NOTE | 2021-12-25 11:28 | Pharmacy Report ---
Pharmacy Glycemic Short Note 2 - Date of Service December 25, 2021 - Glycemic Short BSG Results (Last 24 hours): 12/24/21 12/25/21 12/25/21 17:15 02:57 11:05 Glucose 167 H 239 H POC Glucose 182 H OUTPATIENT ANTIDIABETIC REGIMEN: * NPH 26 units bid, Novolin R SSI ASSESSMENT: * 61 year old admitted with NSTEMI - per notes, paperwork states he is on NPH 26 units BID and novolin R SSI as needed. RN talked with patient and confirms the NPH dosing and reports novolin R is as needed. * No BSG taken this AM, taken at lunch - BSG 182 mg/dL, will based insulin needs off total of ~50 units/day and utilize NPH BID and stress of 2 dosing for novolog for now PLAN FOR INPATIENT GLYCEMIC CONTROL: * Hold outpatient oral diabetes medications * Basal insulin * NPH 15 units x 1 * NPH 10 units daily with dinner * Bolus insulin * NovoLog per scale ACHS or Q6hrs while NPO * Goal Range: Low 110 mg/dL - High 140 mg/dL * Correction Factor: 25 mg/dL/unit * Nutritional / Prandial insulin per carb ratio of 1 unit per 8 grams CHO consumed
[2021-12-25] MEDS ORDERED: INSULIN HUMAN NPH SC ONE (11:30)
[2021-12-25] MEDS: HEPARIN SODIUM/DEXTROSE 25,000 UNITS/500 ML BAG IV SCH (11:46)
[2021-12-25] MEDS: INSULIN ASPART PER UNIT SC SCH ×3 (11:49→20:04)
[2021-12-25 13:15] LABS: Estimated Average Glucose 180 mg/dl; Hemoglobin A1C 7.9 % (4.5-5.6)
--- NOTE | 2021-12-25 15:19 | Hospitalist Progress Note ---
Date of Service December 25, 2021 Assessment & Plan (1) NSTEMI (non-ST elevated myocardial infarction): Plan: Seen in a.m., angina free; Noted did not receive aspirin and not on samediscussed with yard operator who agreed for need and ordered; continue other ongoing management Noted cardiology consultation and plan (2) Hypertension: Plan: Continuing lisinopril, on nitro drip which will have some antihypertensive effect (3) Hyperlipidemia: Plan: On statin (4) Schizophrenia: Plan: No overt psychosis noted, follow clinically (5) GERD (gastroesophageal reflux disease): Plan: Continue PPI (6) Lung nodules: Plan: Will need appropriate follow-up later (7) Diabetes type 2, uncontrolled: Plan: Pharmacy glycemic consult Plan Per policy here yard operator actively managing and writing orders; will defer to avoid multiplicity and per working policy here Admission and Anticipated Discharge Date Admission Date: December 24, 2021 Results & Data Results & Data ([facility]) Vital Signs (Past 12 Hours) Vital Signs Temp Pulse Resp BP Pulse Ox O2 Del Method 12/25/21 11:30 84 18 12/25/21 11:30 158/106 H 12/25/21 11:01 87 23 93 12/25/21 11:01 161/101 H 12/25/21 11:00 91 H 29 H 96 12/25/21 10:30 54 L 20 96 12/25/21 10:30 136/87 12/25/21 10:01 60 15 97 12/25/21 10:01 131/86 12/25/21 10:00 71 21 96 12/25/21 09:30 58 L 12 97 12/25/21 09:30 139/81 12/25/21 09:00 57 L 22 97 12/25/21 09:00 138/85 12/25/21 08:30 61 18 98 12/25/21 08:30 139/83 12/25/21 08:02 59 L 26 H 97 12/25/21 08:02 152/94 H 12/25/21 08:00 67 18 96 12/25/21 07:30 70 9 L 98 12/25/21 07:30 123/79 12/25/21 07:00 60 2 L 12/25/21 07:00 135/78 12/25/21 10:41 36.8 C 12/25/21 06:00 61 12 131/82 12/25/21 05:30 60 18 185/95 H 94 12/25/21 05:00 63 18 171/96 H 93 Room Air 12/25/21 04:01 61 6 L 94 12/25/21 04:00 60 16 151/83 H 94 Room Air 12/25/21 04:00 36.7 C PG Care Time/CCT Total # of Minutes Spent Total Time Spent with Patient: Total time spent is greater than 50% in coordination of care (as documented) at patient's floor/unit and/or counseling patient: Coding Level of Care Code 53170 Subseq Hosp Care Lvl 1 Diagnoses NSTEMI (non-ST elevated myocardial infarction) I21.4 Hypertension I10 Hyperlipidemia E78.5 Schizophrenia F20.9 GERD (gastroesophageal reflux disease) K21.9 Lung nodules R91.8 Diabetes type 2, uncontrolled
[2021-12-25] MEDS: ACETAMINOPHEN 325 MG TAB PO PRN ×2 (15:31→20:20)
[2021-12-25 16:29] LABS: Partial Thromboplastin Ratio 2.6
[2021-12-25 16:40] LABS: Partial Thromboplastin Time 70.8 Seconds (21.0-31.0)
[2021-12-25] MEDS: hydrALAZINE TAB 50 MG TAB PO SCH ×2 (16:47→20:05)
[2021-12-25] MEDS: INSULIN HUMAN NPH SC SCH (16:52)
[2021-12-25] MEDS: PANTOprazole 40 MG TAB PO SCH (20:04)
[2021-12-25 23:12] LABS: Partial Thromboplastin Ratio 2.5
[2021-12-25 23:15] LABS: Partial Thromboplastin Time 68.3 Seconds (21.0-31.0)
--- NOTE | 2021-12-26 03:35 | Billing Data ---
Date of Service December 26, 2021 Coding Level of Care Code 43700 Initial Inpt Care Lvl 3
[2021-12-26 05:43] LABS: Basophils # (auto) 0.04 K/uL (0-0.2); Basophils % (auto) 0.5 %; Eosinophils # (auto) 0.08 K/uL (0-0.50); Hemoglobin 13.1 g/dl (14.0-18.0); Immature Granulocytes # (auto) 0.02 K/uL (0.00-0.02); Immature Granulocytes % (auto) 0.3 %; Lymphocytes # (auto) 2.67 K/uL (1.2-3.4); Lymphocytes % (auto) 34.5 %; Mean Corpuscular Hemoglobin 29.1 pg (25.0-34.0); Mean Corpuscular Hgb Conc 35.4 g/dL (32.0-36.0); Mean Corpuscular Volume 82.2 fL (80.0-100.0); Mean Platelet Volume 9.5 fL (9.4-12.4); Monocytes # (auto) 0.68 K/uL (0.24-0.82); Monocytes % (auto) 8.8 %; Neutrophils # (auto) 4.24 K/uL (1.4-6.5); Neutrophils % (auto) 54.9 %; Platelet Count 223 K/uL (130-400); RDW Coefficient of Variation 13.9 % (11.5-14.5); White Blood Count 7.73 K/ul (4.8-10.8)
[2021-12-26 06:21] LABS: Partial Thromboplastin Ratio 2.5
[2021-12-26 06:25] LABS: BUN Creatinine Ratio 13.1 (10-20); Calcium 9.5 mg/dl (8.5-10.1); Creatinine Clr Calc Pharmacy 72.7 ml/min; Est GFR (African American) 73.2 ml/min; Est GFR (Non-African American) 63.1 ml/min; Magnesium 1.9 mg/dl (1.7-2.4); Troponin I High Sensitivity 1949.8 pg/ml (0-20)
[2021-12-26 06:36] LABS: Partial Thromboplastin Time 69.3 Seconds (21.0-31.0)
[2021-12-26] MEDS: INSULIN ASPART PER UNIT SC SCH ×4 (07:39→20:43)
[2021-12-26] MEDS: ASPIRIN 81 MG CHEW PO SCH (08:01)
[2021-12-26] MEDS: SERTRALINE HCL 100 MG TABLET PO SCH (08:01)
[2021-12-26] MEDS: ISOSORBIDE MONO EXTENDED REL 30 MG TABCR PO SCH (08:01)
[2021-12-26] MEDS: lisinopril 40 MG TAB PO SCH (08:02)
[2021-12-26] MEDS: hydrALAZINE TAB 50 MG TAB PO SCH ×3 (08:02→20:46)
[2021-12-26] MEDS: PANTOprazole 40 MG TAB PO SCH ×2 (08:02→20:47)
[2021-12-26] MEDS: amLODIPine BESYLATE 5 MG TAB PO SCH (08:42)
[2021-12-26] MEDS ORDERED: INSULIN HUMAN NPH SC SCH (09:00)
--- NOTE | 2021-12-26 09:33 | Critical Care Progress Note ---
Date of Service December 26, 2021 Assessment & Plan (1) Admitted to intensive care unit: (2) Chest pain: (3) NSTEMI (non-ST elevated myocardial infarction): (4) Hypertension: (5) Hyperlipidemia: (6) Schizophrenia: (7) Diabetes type 2, uncontrolled: (8) Tobacco use disorder: Plan Reason Critically Ill: 61-year-old male presenting with NSTEMI with concerns for possible unstable angina requiring nitroglycerin drips as well as heparin. NEURO - * CAM ICU: NEGATIVE * Schizophrenia: * Continue home psychiatric medications as previously prescribed. CARDIAC/VASCULAR - * NSTEMI: * Patient presenting with chest pain and hypertension. * Amlodipine and Imdur added to his regimen. Off nitroglycerin infusion. * EKG demonstrates no ST elevations. * Troponin trending down. * Continue heparin drip for now. * Patient's comorbidities including hypertension, hyperlipidemia, diabetes, and smoking are certainly suspicious for possible underlying ACS. * Echo from yesterday reveals an LVEF of 55 to 60%. Basal to mid inferior lateral and anterior lateral nguyen are hypokinetic. Grade 1 diastolic dysfunction. * Appreciate cards recs. Likely cath Monday per Dr. Rivera RESPIRATORY - * No issues GI/NUTRITION - * Continue diet and PPI. N.p.o. after midnight. RENAL/LYTES - * No significant electrolyte derangements. - * Urinalysis without blood. 1+ protein and glucose. ENDO - * DMII * Pharmacy hyperglycemia protocol HEME - * Stable H&H ID - * No concerns for infectious contribution at this time. LINES/IV ACCESS - * PIVs x2 DVT PROPHYLAXIS - * Heparin gtt * SCDs Okay to transfer out of ICU. Discussed with hospitalist and bedside nurse. Admission and Anticipated Discharge Date Admission Date: December 24, 2021 Subjective Patient seen and examined. No chest pain elevated. Off of nitroglycerin since yesterday. Review of Systems Review of Systems: All systems reviewed & are unremarkable except as noted in HPI & below Physical Exam Physical Exam: VITAL SIGNS - Vital signs and nursing notes were reviewed. GENERAL - 61-year-old male appearing his stated age who is in no acute distress. Communicates well with provider and answers questions appropriately. HEAD - NC/AT. EYES - PERRL with EOMI bilaterally. Sclera anicteric. EARS - No deformities of external structures noted on gross examination bilaterally. NOSE - Midline and without cyanosis. No epistaxis or purulent drainage noted. MOUTH/OROPHARYNX - Without perioral cyanosis. Buccal mucosa pink and moist and without leukoplakia. NECK - Neck with FROM. Supple to palpation. LUNGS - Chest wall symmetric without accessory muscle use, intercostals retractions, or central cyanosis. Normal vesicular breath sounds CTA B/L. No wheezes, rales, or rhonchi appreciated. CARDIAC - RRR with S1/S2. No murmur, rubs, or gallops appreciated. No reproducible tenderness to palpation appreciated over the anterior chest wall. ABDOMEN - Abdominal contour obese without pulsations or visible masses. BS normoactive all four quadrants. No tenderness, palpable masses, hepatosplenomegaly, or ascites noted. EXTREMITIES - No clubbing or peripheral cyanosis. No pretibial edema present. +3/5 radial and dorsalis pedis pulses palpated throughout. +5/5 strength noted in UE/LE bilaterally. NEUROLOGIC - Cranial nerves II through XII grossly intact. Sensory intact to light touch throughout. PSYCH - A&Ox3 and cooperates fully with examiner. Pt is very pleasant and interacts well with examiner. Results & Data Results & Data ([facility]) Vital Signs (Past 12 Hours) Vital Signs Temp Pulse Resp BP Pulse Ox O2 Del Method 12/26/21 09:00 67 12 166/92 H 96 12/26/21 08:30 156/96 H 12/26/21 08:00 75 18 178/116 H 96 12/26/21 07:00 67 12 147/98 H 92 Room Air 12/26/21 08:00 37.1 C 12/26/21 08:00 62 12/26/21 06:00 74 20 160/100 H 93 12/26/21 05:00 73 14 163/106 H 12/26/21 04:00 68 19 165/83 H 12/26/21 04:34 36.9 C 12/26/21 03:01 58 L 20 163/84 H 12/26/21 02:00 60 18 151/84 H 12/26/21 01:00 63 14 136/72 92 12/26/21 00:00 72 20 157/82 H 93 Room Air 12/26/21 00:15 37.0 C 12/25/21 23:00 66 13 127/81 96 12/25/21 22:00 62 19 138/84 93 Coding Level of Care Code 55378 Subseq Hosp Care Lvl 2 Diagnoses Admitted to intensive care unit Z78.9 Chest pain R07.9 NSTEMI (non-ST elevated myocardial infarction) I21.4 Hypertension I10 Hyperlipidemia E78.5 Schizophrenia F20.9 Diabetes type 2, uncontrolled Tobacco use disorder F17.200
[2021-12-26] MEDS: HEPARIN SODIUM/DEXTROSE 25,000 UNITS/500 ML BAG IV SCH (09:38)
--- NOTE | 2021-12-26 12:21 | Cardiology Progress Note ---
Date of Service December 26, 2021 Assessment & Plan Admission and Anticipated Discharge Date Admission Date: December 24, 2021 Subjective He feels better this morning. He feels like he can take a deep breath without a ny discomfort. He denies any lightheadedness or dizziness. He denies any lower extremity edema. [place] any palpitations or fluttering or feeling his heart racing. He ate breakfast this morning without any difficulty. Overall he is feeling better. Results & Data ([facility]) Vital Signs (Past 12 Hours) Vital Signs Temp Pulse Resp BP Pulse Ox O2 Del Method 12/26/21 09:00 67 12 166/92 H 96 12/26/21 08:30 156/96 H 12/26/21 08:00 75 18 178/116 H 96 12/26/21 07:00 67 12 147/98 H 92 Room Air 12/26/21 08:00 37.1 C 12/26/21 08:00 62 12/26/21 06:00 74 20 160/100 H 93 12/26/21 05:00 73 14 163/106 H 12/26/21 04:00 68 19 165/83 H 12/26/21 04:34 36.9 C 12/26/21 03:01 58 L 20 163/84 H 12/26/21 02:00 60 18 151/84 H 12/26/21 01:00 63 14 136/72 92 He is awake alert and oriented x3 he is in no acute distress HEENT 2+ carotid upstrokes nodes or carotid bruits Lungs: Clear to auscultation bilaterally no rales no rales rhonchi or wheezing Heart: Regular rate and rhythm no appreciable murmurs rubs or gallops Abdomen: Soft nontender senna positive bowel sounds Extremities: No clubbing cyanosis or edema Psychiatric his affect appear appropriate His labs EKG and CAT scan of his chest were reviewed. IMPRESSIONS: 1. Non-ST elevation myocardial infarction 2. Hypertension 3. Diabetes mellitus type 2 4. Tobacco abuse stopping this admission 5. Schizophrenia As was discussed with the slot shift supervisor, Imdur was added this morning and amlodipine for his blood pressure. We will plan for cardiac catheterization tomorrow. He will be n.p.o. after midnight for planned catheterization tomorrow. Post procedure hopefully we can stop his Imdur and just uptitrate his amlodipine for blood pressure control. He is currently on aspirin, heparin, high intensity statin therapy, and high-dose lisinopril. I did discuss with Ebenezer the importance of stopping smoking long-term to reduce his risk of further cardiovascular events especially in light of his diabetes. We also discussed the need for aggressive risk factor modification. He would benefit from Farxiga long-term given his diabetes and cardiovascular disease. Although his heart rate right now is faster for the most part his heart rates been in the 50s and low 60s and therefore beta-blockers have not been started. The risks and benefits of catheterization were discussed with Ebenezer. Risks including but not limited to bleeding or infection at the puncture site, damage to his radial or femoral artery, risk of contrast-induced nephropathy, heart attack, stroke, and were discussed. He understands the risks and wishes to proceed. I did discuss with him 3 options including medical therapy, angioplasty and stenting if he has a lesion that is amenable, and the small possibility of needing open heart surgery if he had severe left main disease with triple-vessel disease. All of his questions were answered in detail. This was all communicated with the Health Information Systems Technician as well.
[2021-12-26 13:32] LABS: Partial Thromboplastin Time 53.8 Seconds (21.0-31.0)
--- NOTE | 2021-12-26 14:03 | Pharmacy Report ---
Pharmacy Glycemic Short Note 2 - Date of Service December 26, 2021 - Glycemic Short BSG Results (Last 24 hours): 12/25/21 12/25/21 12/25/21 16:21 19:54 19:57 Glucose POC Glucose 140 H 50 L* 115 H 12/26/21 12/26/21 12/26/21 05:30 07:27 11:29 Glucose 159 H POC Glucose 164 H 140 H OUTPATIENT ANTIDIABETIC REGIMEN: * NPH 26 units bid, Novolin R SSI ASSESSMENT: 12/26 * Patient received total of 38 units of insulin yesterday, of which 25 units were NPH * Fasting BSG 159 mg/dL - continue same NPH dosing today * BSGs trended down yesterday evening, unclear if treated for hypoglycemia. Loosened CF/CR at lunch in case BSGs trend downward. Patient NPO at midnight 12/25 * 61 year old admitted with NSTEMI - per notes, paperwork states he is on NPH 26 units BID and novolin R SSI as needed. RN talked with patient and confirms the NPH dosing and reports novolin R is as needed. * No BSG taken this AM, taken at lunch - BSG 182 mg/dL, will based insulin needs off total of ~50 units/day and utilize NPH BID and stress of 2 dosing for novolog for now PLAN FOR INPATIENT GLYCEMIC CONTROL: * Hold outpatient oral diabetes medications * Basal insulin * NPH 15 units daily in AM * NPH 10 units daily with dinner * Bolus insulin * NovoLog per scale ACHS or Q6hrs while NPO * Goal Range: Low 110 mg/dL - High 140 mg/dL * Correction Factor: 30 mg/dL/unit * Nutritional / Prandial insulin per carb ratio of 1 unit per 12 grams CHO consumed
--- NOTE | 2021-12-26 14:32 | Hospitalist Progress Note ---
Date of Service December 26, 2021 Assessment & Plan (1) NSTEMI (non-ST elevated myocardial infarction): Plan: Type I NSTEMIcontinue heparin; off nitro; noted addition of isosorbide mononitrate; cath tomorrow; high-dose statin (2) Hypertension: Plan: No change from current regimen today; however, blood pressures not optimal and may need adjustment (3) Hyperlipidemia: Plan: High-dose statin (4) Schizophrenia: Plan: - Home regimen (5) GERD (gastroesophageal reflux disease): Plan: - continue home PPI (6) Diabetes type 2, uncontrolled: Plan: - Diabetes consult team managing (7) Tobacco use disorder: Plan: - current nicotine vaper, unknown amount -Recommend cessation (8) Lung nodules: Plan: - Will need appropriate follow-up Plan Mild headachesymptomatic treatment and observe Admission and Anticipated Discharge Date Admission Date: December 24, 2021 Subjective Follow-up of presentation with chest painpain-free; some nonspecific headache Physical Exam Physical Exam: Constitutional and general: No acute distress, looks biologic age Head and face: No puffiness, atraumatic Eyes: No scleral icterus, extraocular movements normal Neck: Supple, no JVD Musculoskeletal: No acute joint swelling, no bony abnormalities Skin/dermatologic/integument: No rash, no purpura Hematologic and lymphatic: pallor +, no petechia Gastrointestinal/abdomen: Nondistended, soft, nonacute Neurologic: Cranial nerves intact, nonfocal Psychiatry: Awake, alert, pleasant, communicative Cardiovascular: Heart rhythm regular, no rub, no murmur, no gallop Respiratory: Chest movements equal, no use of accessory muscles, no adventitious sounds Extremities: No edema, no cyanosis Results & Data Results & Data ([facility]) Vital Signs (Past 12 Hours) Vital Signs Temp Pulse Resp BP Pulse Ox O2 Del Method 12/26/21 09:00 67 12 166/92 H 96 12/26/21 08:30 156/96 H 12/26/21 08:00 75 18 178/116 H 96 12/26/21 07:00 67 12 147/98 H 92 Room Air 12/26/21 08:00 37.1 C 12/26/21 08:00 62 12/26/21 06:00 74 20 160/100 H 93 12/26/21 05:00 73 14 163/106 H 12/26/21 04:00 68 19 165/83 H 12/26/21 04:34 36.9 C 12/26/21 03:01 58 L 20 163/84 H Laboratory Results Laboratory Results - last 24 hr 12/25/21 12/25/21 12/25/21 15:29 15:29 16:21 WBC RBC Hgb Hct MCV MCH MCHC RDW Std Deviation RDW Coeff of Margarita Plt Count MPV Immature Gran % (Auto) Neut % (Auto) Lymph % (Auto) [place] % (Auto) Eos % (Auto) Baso % (Auto) Neut # (Auto) Lymph # (Auto) [place] # (Auto) Eos # (Auto) Baso # (Auto) Immature Gran # (Auto) APTT 70.8 H* PTT Ratio 2.6 Sodium Potassium Chloride Carbon Dioxide Anion Gap BUN Creatinine Est Cr Clr Drug Dosing Est GFR ( Amer) Est GFR (Non-Af Amer) BUN/Creatinine Ratio Glucose POC Glucose 140 H Calcium Phosphorus Magnesium Troponin I High Sens 2634.6 H* 12/25/21 12/25/21 12/25/21 19:54 19:57 22:18 WBC RBC Hgb Hct MCV MCH MCHC RDW Std Deviation RDW Coeff of Margarita Plt Count MPV Immature Gran % (Auto) Neut % (Auto) Lymph % (Auto) [place] % (Auto) Eos % (Auto) Baso % (Auto) Neut # (Auto) Lymph # (Auto) [place] # (Auto) Eos # (Auto) Baso # (Auto) Immature Gran # (Auto) APTT 68.3 H* PTT Ratio 2.5 Sodium Potassium Chloride Carbon Dioxide Anion Gap BUN Creatinine Est Cr Clr Drug Dosing Est GFR ( Amer) Est GFR (Non-Af Amer) BUN/Creatinine Ratio Glucose POC Glucose 50 L* 115 H Calcium Phosphorus Magnesium Troponin I High Sens 12/26/21 12/26/21 12/26/21 05:30 05:30 05:30 WBC 7.73 RBC 4.50 L Hgb 13.1 L Hct 37.0 L MCV 82.2 MCH 29.1 MCHC 35.4 RDW Std Deviation 41.0 RDW Coeff of Margarita 13.9 Plt Count 223 MPV 9.5 Immature Gran % (Auto) 0.3 Neut % (Auto) 54.9 Lymph % (Auto) 34.5 [place] % (Auto) 8.8 Eos % (Auto) 1.0 Baso % (Auto) 0.5 Neut # (Auto) 4.24 Lymph # (Auto) 2.67 [place] # (Auto) 0.68 Eos # (Auto) 0.08 Baso # (Auto) 0.04 Immature Gran # (Auto) 0.02 APTT 69.3 H* PTT Ratio 2.5 Sodium 137 Potassium 4.0 Chloride 103 Carbon Dioxide 27 Anion Gap 7 BUN 16 Creatinine 1.22 Est Cr Clr Drug Dosing 72.7 Est GFR ( Amer) 73.2 Est GFR (Non-Af Amer) 63.1 BUN/Creatinine Ratio 13.1 Glucose 159 H POC Glucose Calcium 9.5 Phosphorus 3.0 Magnesium 1.9 Troponin I High Sens 1949.8 H* D 12/26/21 12/26/21 12/26/21 07:27 11:29 12:47 WBC RBC Hgb Hct MCV MCH MCHC RDW Std Deviation RDW Coeff of Margarita Plt Count MPV Immature Gran % (Auto) Neut % (Auto) Lymph % (Auto) [place] % (Auto) Eos % (Auto) Baso % (Auto) Neut # (Auto) Lymph # (Auto) [place] # (Auto) Eos # (Auto) Baso # (Auto) Immature Gran # (Auto) APTT 53.8 H* PTT Ratio 2.0 Sodium Potassium Chloride Carbon Dioxide Anion Gap BUN Creatinine Est Cr Clr Drug Dosing Est GFR ( Amer) Est GFR (Non-Af Amer) BUN/Creatinine Ratio Glucose POC Glucose 164 H 140 H Calcium Phosphorus Magnesium Troponin I High Sens PG Care Time/CCT Total # of Minutes Spent Total Time Spent with Patient: Total time spent is greater than 50% in coordination of care (as documented) at patient's floor/unit and/or counseling patient: Coding Level of Care Code 62597 Subseq Hosp Care Lvl 3 Diagnoses NSTEMI (non-ST elevated myocardial infarction) I21.4 Hypertension I10 Hyperlipidemia E78.5 Schizophrenia F20.9 GERD (gastroesophageal reflux disease) K21.9 Diabetes type 2, uncontrolled Tobacco use disorder F17.200 Lung nodules R91.8
[2021-12-26] MEDS: INSULIN HUMAN NPH SC SCH (18:47)
[2021-12-26] MEDS: ACETAMINOPHEN 325 MG TAB PO PRN ×2 (18:48→23:30)
[2021-12-26] MEDS: PERPHENAZINE 2 MG TABLET PO SCH (20:44)
[2021-12-26] MEDS: TRIHEXYPHENIDYL HCL 2 MG TAB PO SCH (20:46)
[2021-12-26] MEDS: ATORVASTATIN 40 MG TAB PO SCH (20:47)
[2021-12-27 05:45] LABS: Partial Thromboplastin Ratio 1.9
[2021-12-27 05:47] LABS: Partial Thromboplastin Time 52.1 Seconds (21.0-31.0)
[2021-12-27] MEDS ORDERED: LIDOCAINE 1% LOCAL 20 ML VIAL ONE (07:40)
[2021-12-27] MEDS ORDERED: INSULIN HUMAN NPH SC ONE (08:00)
[2021-12-27] MEDS: INSULIN ASPART PER UNIT SC SCH ×4 (09:08→21:08)
[2021-12-27] MEDS: PANTOprazole 40 MG TAB PO SCH (09:09)
[2021-12-27] MEDS: hydrALAZINE TAB 50 MG TAB PO SCH ×2 (09:09→17:01)
[2021-12-27] MEDS: ASPIRIN 81 MG CHEW PO SCH (09:10)
[2021-12-27] MEDS: TRIHEXYPHENIDYL HCL 2 MG TAB PO SCH ×2 (09:10→20:59)
[2021-12-27] MEDS: ISOSORBIDE MONO EXTENDED REL 30 MG TABCR PO SCH (09:10)
[2021-12-27] MEDS: amLODIPine BESYLATE 5 MG TAB PO SCH (09:11)
[2021-12-27] MEDS: lisinopril 40 MG TAB PO SCH (09:11)
[2021-12-27] MEDS: SERTRALINE HCL 100 MG TABLET PO SCH (09:11)
[2021-12-27] MEDS: HEPARIN SODIUM/DEXTROSE 25,000 UNITS/500 ML BAG IV SCH ×3 (10:16→15:16)
--- NOTE | 2021-12-27 11:30 | Pharmacy Report ---
Pharmacy Glycemic Short Note 2 - Date of Service December 27, 2021 - Glycemic Short BSG Results (Last 24 hours): 12/26/21 12/26/21 12/26/21 11:29 16:28 20:40 POC Glucose 140 H 130 H 129 H 12/27/21 12/27/21 08:43 11:16 POC Glucose 186 H 153 H OUTPATIENT ANTIDIABETIC REGIMEN: * NPH 26 units bid, Novolin R SSI ASSESSMENT: 12/27 * Now NPO for cardiac cath today * BSG's ranged 130-159 mg/dL yesterday. AM fasting elevated at 186 mg/dL today * Will reduce AM NPH slightly 2nd NPO, but resume prior this evening in anticipation of diet ordered. Label comment for RN to contact pharmacy if pt remains NPO entered * No change to Novolog - already appropriately loosened yesterday 12/26 * Patient received total of 38 units of insulin yesterday, of which 25 units were NPH * Fasting BSG 159 mg/dL - continue same NPH dosing today * BSGs trended down yesterday evening, unclear if treated for hypoglycemia. Loosened CF/CR at lunch in case BSGs trend downward. Patient NPO at midnight 12/25 * 61 year old admitted with NSTEMI - per notes, paperwork states he is on NPH 26 units BID and novolin R SSI as needed. RN talked with patient and confirms the NPH dosing and reports novolin R is as needed. * No BSG taken this AM, taken at lunch - BSG 182 mg/dL, will based insulin needs off total of ~50 units/day and utilize NPH BID and stress of 2 dosing for novolog for now PLAN FOR INPATIENT GLYCEMIC CONTROL: * Hold outpatient oral diabetes medications * Basal insulin * NPH 10 units for NPO status this AM * NPH 10 units daily with dinner * Bolus insulin * NovoLog per scale ACHS or Q6hrs while NPO * Goal Range: Low 110 mg/dL - High 140 mg/dL * Correction Factor: 30 mg/dL/unit * Nutritional / Prandial insulin per carb ratio of 1 unit per 12 grams CHO consumed
[2021-12-27] MEDS: Patient's ALLERGY Info needs ENTERED SCH ×4 (12:24→12:47)
--- NOTE | 2021-12-27 14:07 | Hospitalist Progress Note ---
Date of Service December 27, 2021 Assessment & Plan (1) NSTEMI (non-ST elevated myocardial infarction): Plan: Type I NSTEMI Awaiting cardiac oven laborer today ASA 81mg po daily, IV heparin low dose, atorvastatin, not on BB due to bradycardia per cardiology note ISMN and amlodipine as anti-anginals (2) Hypertension: Plan: Outpatient regimen of atenolol 25mg PO daily, lisinopril 40mg PO daily, isisirbide dinitrate 10mg PO daily Continue current regimen of lisinopril 40mg PO daily, ISMN ER 30mg PO daily, hydralazine 50mg PO TID, amlodipine 5mg PO QAM Consider addition of BB as HR now 64 - 90 - will defer to cardiology. (3) Hyperlipidemia: Plan: Continue atorvastatin 80mg PO daily (4) Schizophrenia: Plan: Continue outpatient regimen on Artane 2mg PO BID and Trilafon 16mg PO HS (5) GERD (gastroesophageal reflux disease): Plan: Switch omeprazole for pantoprazole per hospital formulary, can reduce to once daily (6) Diabetes type 2, uncontrolled: Plan: HbA1C 7.9 Outpatient regimen of NPO 26 units BID and Novolin R sliding scale Appreciate pharmacy glycemic control with insulin as inpatient Start Farxiga as outpatient for CV benefit (7) Tobacco use disorder: Plan: - current nicotine vaper, unknown amount - Recommend cessation (8) Lung nodules: Plan: - [address] follow up recommended Plan VTE Prophylaxis - IV heparin Diet - NPO pending cardiac cath Disposition - continued admission to PCU Admission and Anticipated Discharge Date Admission Date: December 24, 2021 Subjective Awaiting oven laborer currently. Chest pain free. No shortness of breath, diaphoresis, dizziness, nausea or leg swelling. Review of Systems Review of Systems: All systems reviewed & are unremarkable except as noted in Subjective Physical Exam Constitutional: WD/WN, vitals as above Respiratory: normal respiratory effort, lungs clear to auscultation Cardiovascular: RRR, no murmur, no edema Gastrointestinal (Abdomen): normal bowel sounds, soft, nontender, no hepatosplenomegaly Psychiatric: A+Ox3, euthymic affect Results & Data Results & Data ([facility]) Vital Signs (Past 12 Hours) Vital Signs Temp Pulse Pulse Resp BP BP Pulse Ox 12/27/21 10:28 36.5 C 72 18 149/89 H 97 12/27/21 08:00 64 12/27/21 07:33 37.1 C 67 14 142/95 H 94 12/27/21 04:00 77 23 164/104 H 96 12/27/21 04:55 36.8 C O2 Del Method 12/27/21 10:28 Room Air 12/27/21 08:00 12/27/21 07:33 Room Air 12/27/21 04:00 Room Air 12/27/21 04:55 PG Care Time/CCT Total # of Minutes Spent Total Time Spent with Patient: Total time spent is greater than 50% in coordination of care (as documented) at patient's floor/unit and/or counseling patient: Coding Level of Care Code 09985 Subseq Hosp Care Lvl 2 Diagnoses NSTEMI (non-ST elevated myocardial infarction) I21.4 Hypertension I10 Hyperlipidemia E78.5 Schizophrenia F20.9 GERD (gastroesophageal reflux disease) K21.9 Diabetes type 2, uncontrolled Tobacco use disorder F17.200 Lung nodules R91.8
[2021-12-27] MEDS ORDERED: niCARdipine HCL INJ 2.5 MG/ML 10 ML AMP ONE (14:41)
[2021-12-27] MEDS ORDERED: fentaNYL citrate 100 MCG/2 ML VIAL ONE (14:41)
[2021-12-27] MEDS ORDERED: HEPARIN (PORCINE) 1000 UNIT/ML 10 ML (CATH LAB USE ONLY) ONE (14:41)
--- NOTE | 2021-12-27 14:41 | Pre Anesthesia Assessment ---
Date of Service December 27, 2021 Pre Sedation Assessment Vital Signs Temp Pulse Pulse Resp BP BP Pulse Ox 12/27/21 10:28 97.7 F 72 18 149/89 H 97 12/27/21 08:00 64 12/27/21 07:33 98.8 F 67 14 142/95 H 94 12/27/21 04:00 77 23 164/104 H 96 12/27/21 04:55 98.2 F 12/27/21 00:00 69 12 167/87 H 96 12/26/21 20:00 102 H 26 H 165/105 H 94 12/26/21 20:00 98.4 F O2 Del Method 12/27/21 10:28 Room Air 12/27/21 08:00 12/27/21 07:33 Room Air 12/27/21 04:00 Room Air 12/27/21 04:55 12/27/21 00:00 12/26/21 20:00 Room Air 12/26/21 20:00 Cardiovascular RRR, no murmur, no edema Respiratory normal respiratory effort, lungs clear to auscultation Pre-Sedation Airway Assessment Smoking Status: Former smoker Hx Sleep Apnea: No Hx Difficult Intubation: No Short, Thick Neck: No Thyromental Distance: > or= 3.5 Finger Breadths ASA: ASA3 Procedure Planning Contraindications for Sedation: none Current Medications Reviewed: Yes Notes The planned sedation has been discussed with the patient. Informed Consent was obtained. I have identified the patient, determined the appropriateness of sedation and have assessed the patient immediately prior to the procedure. All medicine(s) and interventions are by my order.
[2021-12-27] MEDS ORDERED: NITROGLYCERIN/D5W 100MCG/ML 20ML SYR ONE (14:42)
[2021-12-27] MEDS ORDERED: MIDAZOLAM HCL 1 MG/ML 2ML VIAL ONE (14:42)
[2021-12-27] MEDS ORDERED: CLOPIDOGREL BISULFATE 300 MG TAB ONE (16:19)
--- NOTE | 2021-12-27 16:29 | Post Anesthesia Assessment ---
Date of Service December 27, 2021 Post Sedation Assessment Vital Signs Temp Pulse Pulse Resp BP BP Pulse Ox 12/27/21 15:20 72 12/27/21 14:44 53 L 20 131/80 96 12/27/21 10:28 97.7 F 72 18 149/89 H 97 12/27/21 08:00 64 12/27/21 07:33 98.8 F 67 14 142/95 H 94 12/27/21 04:00 77 23 164/104 H 96 12/27/21 04:55 98.2 F 12/27/21 00:00 69 12 167/87 H 96 12/26/21 20:00 102 H 26 H 165/105 H 94 12/26/21 20:00 98.4 F O2 Del Method 12/27/21 15:20 12/27/21 14:44 Room Air 12/27/21 10:28 Room Air 12/27/21 08:00 12/27/21 07:33 Room Air 12/27/21 04:00 Room Air 12/27/21 04:55 12/27/21 00:00 12/26/21 20:00 Room Air 12/26/21 20:00 Recovery Score Activity: Moves 4 extremities Respiration: Deep Breath/Cough Circulation: +/-20% PreAnes Value Consciousness: Fully Awake Oxygen Saturation: O2 needed for >90% Discharge Sedation Level of Care: Fast Track Phase II Post Sedation Plan On clinical assessment, the patient appears to have tolerated the sedation without complications. Patient is recovering as anticipated. Patient will continue to be monitored by nursing and may be discharged when sedation discharge criteria are met per below protocol. Upon Completions of procedure up to 15 minutes continue every 5 minute vital signs and the P.A.R. score; then discharge to a Phase I or Fast Track to Phase II per the following guidelines: * Discharge Patient to appropriate Phase II area if PAR is 8 or greater or return to pre- procedure baseline. The post - procedure orders will be as directed. * If PAR score is less than 8 or not return to pre-procedure baseline then patient will follow Phase I monitoring till PAR is reached for Phase II. The Phase I may be done in procedure room or may call to secure a Phase I area. * If naloxone or flumazenil are used for reversal, hold in Phase I for continued monitoring from when last reversal dose was given for a minimum of 60 minutes or longer pending the nurse and/or physician discretion of patient condition before discharge to Phase II. Please call the Sedation Physician to re-evaluate and complete post-note for discharge to Phase II area. Do NOT discharge from procedure sedation or Phase 1 until post- sedation evaluation note is complete by procedure /sedation MD Sedation Discharge Instructions to be given to the patient at discharge to home.
--- NOTE | 2021-12-27 16:43 | Cardiac Catheterization ---
ACC Data: Plant Engineering Supervisor Cardiac Status Clinical evaluation leading to the procedure CAD Presenation: Non STEMI Anginal Classification: CCS IV Diagnostic Physicians Name: Mark Nascimento MD Closure Device Recommendations: PCI without planned CABG Cardiac Cath Procedure Full Procedure Date December 27, 2021 Pre-Procedure Diagnosis Pre-Procedure Diagnosis: Non STEMI AUC Score AUC Score: 8 Post-Procedure Diagnosis Post-Procedure Diagnosis: Severe CAD Procedure(s) Performed Procedure(s) Performed: Coronary Angiography, Left Heart Cath and Drug Eluting Stent Mold Closer Mark Nascimento MD Stretch Box Tender(s) Marques Estimated Blood Loss Estimated Blood Loss: 15 Medication(s) Medication(s): Clopidogrel, Fentanyl, Heparin, Lidocaine 1%, Nicardipine, Nitroglycerin and Versed Summary of Findings Indication: NSTEMI Access: 6 Fr right radial artery Catheters: [place], [place]-1, EBU 3.5 guide Findings: LM -normal caliber, no significant disease LAD -medium caliber, distal vessel wraps around apex, and gives off 3 very small diagonals with severe diffuse disease. Mid segment luminal irregularities Circumflex -medium caliber, 30% mid segment disease. Medium OM1 with 95% acute proximal stenosis. Very small OM 2 with severe ostial disease. RCA -dominant, medium caliber, 40% mid segment, distal luminal irregularities. Medium PDA with mild diffuse disease. LVEDP -7 -- PCI -- Antithrombotic therapy: Heparin, clopidogrel Procedure: Left main cannulated with EBU 3.5 guide Pre-procedure flow MARY JO 2 Spray Unit Feeder 50 wire passed across lesion into distal vessel Proximal OM 1 lesion predilated with 2.5 compliant balloon Dilated lesion stented with 2.5 x 15 mm Antonio drug-eluting stent Stent post-dilated with 2.5 noncompliant balloon IC vasodilators administered for spasm Post procedure MARY JO 3 flow, stent well expanded with minimal residual stenosis and no apparent cardiac complications. Arterial Closure: TR band Summary: 1. Acute 95% proximal OM1. 2. Mild to moderate nonculprit major epicardial vessel disease -40% mid RCA 3. Severe diffuse branch vessel disease involving very small diagonals, OM 2 (too small for intervention) 4. Normal intracardiac filling pressure 5. Successful PCI of proximal OM1 with single drug-eluting stent (2.5 x 15 mm [place]). Recommendations: To PCU for continued monitoring Loaded with clopidogrel 600 mg in Plant Engineering Supervisor Continue dual-antiplatelet therapy for at least 1 year Continue statin, and ASCVD risk factor modification Smoking cessation Hemodynamics Rest Ao:: 132/78/26 Final Ao: 109/70/87 LV: 120/7 Recommendations Recommendations: PCI without planned CABG Specimens Specimens: None Radiation Exposure (mGy) 2821 Contrast (mls) 90 Anesthesia moderate 9205-7950 Procedural Complication(s) None Disposition PCU I attest to the content of the Intraoperative Record and any orders documented therein. Any exceptions are noted below. [facility] Card Cath Procedure Codes Cardiac Catheterization Procedure 1: Cardiovascular Cath Procedures: 52374 Coronaries and LHC (+/-LV) Moderate Sedation Procedure 1: Sedation/Anesthesia: 39452 Mod Sedation by the same physician;Init15 Min Child Age 5 & Up Procedure 2: Sedation/Anesthesia: 16014 Mod Sedation by the same physician; Ea [id number] Minutes Stenting Procedure 1: Cardiovascular Stent Procedures: 72891 Perc transcatheter placement of intracoronary stent(s), with ang PG Care Time/CCT Total # of Minutes Spent Total Time Spent with Patient: Total time spent is greater than 50% in coordination of care (as documented) at patient's floor/unit and/or counseling patient:
[2021-12-27] MEDS ORDERED: ONDANSETRON INJ 2 MG/ML 2 ML VIAL IV PRN (16:47)
[2021-12-27] MEDS ORDERED: SODIUM CHLORIDE 0.9% 1000ML 1,000 ML IV SCH (17:00)
[2021-12-27] MEDS: ACETAMINOPHEN 325 MG TAB PO PRN (18:06)
[2021-12-27] MEDS: INSULIN HUMAN NPH SC SCH (18:08)
[2021-12-27] MEDS: ATORVASTATIN 40 MG TAB PO SCH (20:57)
[2021-12-27] MEDS: carvediloL 3.125 MG TAB PO SCH (20:58)
[2021-12-27] MEDS: PERPHENAZINE 2 MG TABLET PO SCH (20:59)
[2021-12-27] MEDS ORDERED: hydrALAZINE HCL 25 MG TAB PO SCH (21:00)
[2021-12-28 06:42] LABS: Basophils # (auto) 0.03 K/uL (0-0.2); Basophils % (auto) 0.4 %; Eosinophils # (auto) 0.05 K/uL (0-0.50); Eosinophils % (auto) 0.7 %; Hemoglobin 12.9 g/dl (14.0-18.0); Immature Granulocytes # (auto) 0.02 K/uL (0.00-0.02); Immature Granulocytes % (auto) 0.3 %; Lymphocytes # (auto) 1.86 K/uL (1.2-3.4); Lymphocytes % (auto) 25.8 %; Mean Corpuscular Hemoglobin 29.3 pg (25.0-34.0); Mean Corpuscular Hgb Conc 35.8 g/dL (32.0-36.0); Mean Corpuscular Volume 81.6 fL (80.0-100.0); Mean Platelet Volume 9.8 fL (9.4-12.4); Monocytes # (auto) 0.69 K/uL (0.24-0.82); Monocytes % (auto) 9.6 %; Neutrophils # (auto) 4.55 K/uL (1.4-6.5); Neutrophils % (auto) 63.2 %; Platelet Count 255 K/uL (130-400); RDW Coefficient of Variation 14.2 % (11.5-14.5); RDW Standard Deviation 41.5 fL (36.4-46.3); Red Blood Count 4.41 M/uL (4.63-6.08)
[2021-12-28 06:59] LABS: Partial Thromboplastin Time 27.1 Seconds (21.0-31.0)
[2021-12-28 07:01] LABS: BUN Creatinine Ratio 14.7 (10-20); Calcium 9.3 mg/dl (8.5-10.1); Creatinine Clr Calc Pharmacy 65.7 ml/min; Est GFR (African American) 64.2 ml/min; Est GFR (Non-African American) 55.4 ml/min; Potassium 4.1 mmol/L (3.5-5.1)
[2021-12-28] MEDS ORDERED: INSULIN HUMAN NPH SC SCH (08:15)
[2021-12-28] MEDS: SERTRALINE HCL 100 MG TABLET PO SCH (08:36)
[2021-12-28] MEDS: carvediloL 3.125 MG TAB PO SCH (08:36)
[2021-12-28] MEDS: TRIHEXYPHENIDYL HCL 2 MG TAB PO SCH (08:36)
[2021-12-28] MEDS: lisinopril 40 MG TAB PO SCH (08:37)
[2021-12-28] MEDS: INSULIN ASPART PER UNIT SC SCH ×2 (08:37→12:20)
[2021-12-28] MEDS: amLODIPine BESYLATE 5 MG TAB PO SCH (08:37)
[2021-12-28] MEDS: ASPIRIN 81 MG CHEW PO SCH (08:37)
[2021-12-28] MEDS ORDERED: PANTOprazole 40 MG TAB PO SCH (09:00)
[2021-12-28] MEDS ORDERED: CLOPIDOGREL BISULFATE 75 MG TAB PO SCH (09:00)
[2021-12-28] MEDS ORDERED: ISOSORBIDE MONO EXTENDED REL 60 MG TABCR PO SCH (09:00)
[2021-12-28] MEDS: ACETAMINOPHEN 325 MG TAB PO PRN (09:06)
--- NOTE | 2021-12-28 09:12 | Cardiology Progress Note ---
Date of Service December 28, 2021 Assessment & Plan (1) NSTEMI (non-ST elevated myocardial infarction): Plan IMPRESSIONS: 1. Non-ST elevation myocardial infarction, s/p Drug-eluting stent to OM1 for 95% stenosis. 40% mid RCA stenosis. Severe diffuse branch vessel disease involving very small diagonals, OM 2 which was too small for intervention. 2. Hypertension 3. Diabetes mellitus type 2 4. Tobacco abuse stopping this admission 5. Schizophrenia Ebenezer is not having any concerning anginal symptoms this morning. He is in a normal sinus rhythm on the monitor. We discussed that he should be on dual antiplatelet therapy for at least 6 months if not a year which is preferable. He will be on aspirin for life. He should let someone know if he is having black tarry stools or any signs symptoms of bleeding. He is otherwise appropriately on high intensity statin therapy, beta-nyla, and lisinopril for CAD. His Imdur can be stopped at discharge and amlodipine titrated up for better blood pressure control. His blood pressure is under reasonable control today. He should discontinue tobacco use. He would benefit from Farxiga long-term given his diabetes and cardiovascular disease. If possible he should be enrolled in cardiac rehab. 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 He should slowly titrate up his exercise starting with walking. He can be discharged from a cardiac perspective today. Admission and Anticipated Discharge Date Admission Date: December 24, 2021 Ming Sol is doing well this morning. No chest pain or shortness of breath. His insertion site from his catheterization on his right wrist is not bleeding or painful. No tingling or numbness in his fingertips. He is normal sinus rhythm on the monitor Review of Systems Review of Systems: All systems reviewed & are unremarkable except as noted in HPI & below Physical Exam Constitutional: WD/WN, vitals as above Respiratory: normal respiratory effort, lungs clear to auscultation Cardiovascular: RRR, no murmur, no edema Skin: no rashes, warm and dry Neurologic: moves all extremities and awake Results & Data ([facility]) Vital Signs (Past 12 Hours) Vital Signs Temp Pulse Pulse Resp BP Pulse Ox O2 Del Method 12/28/21 07:00 36.9 C 65 18 137/78 96 Room Air 12/28/21 03:45 36.8 C 69 18 120/66 94 Room Air 12/27/21 23:00 36.8 C 73 18 106/65 94 Room Air 12/27/21 23:26 94 H 12/27/21 21:42 36.8 C 100 H 18 97/61 L 96 Room Air
--- NOTE | 2021-12-28 13:33 | Discharge Summary ---
Date of Service December 28, 2021 Admission HPI Per Admitting Provider 61 year old male w/ DM2 on insulin, GERD, htn, hep c, HLD, schizophrenia, angina who presents from [facility] for episodes of mid-upper chest pain since 12/19/21. It is exertional such as with walking and is also exacerbated by certain positions/body movements. He has had daily episodes this week and the pain would last for hours, relieved by baby aspirin and nitroglycerin. He describes it as a throbbing pain in the upper chest just below his neck though per EMS report, was midsternal pressure. Per senior living records, he was taking too many of the nitroglycerins so they discontinued and started isosorbide dinitrate. Today, at 130pm, patient was walking casually on his way to a [employer] game when he developed 10/10 chest pain at its worse. There was associated diaphoresis and radiation to his bilateral arms, no nausea. There was some discomfort at his left ribs below the chest. 2 aspirins did not provide relief of his symptoms and ecg showed new t wave inversions concerning for developing ischemia, so he was brought to [facility] ED. His pain did subside prior to ED arrival after >1-2 hours duration of discomfort, but has had intermittently. His current pain level is 1/10 and is receiving nitro drip at 5 mcg/hr. ED course: Heparin drip, nitro drip, and morphine. BP was elevated to 203/130 w/ HR in the 50s. Hydralazine 10mg IV. notable data: d dimer 1070. Cr 1.35. hx trop 1797.5, 2331 after 2 hours. chest CTA w/o PE. ecg w/ t wave inversions in leads 1-[address]-T changes. new today compared to 12/22/21. home meds from paperwork reviewed: lasix 20 daily. isordil 10mg daily. lisinopril 40 daily. omeprazole 40 daily. perphenazine 16 qhs. sertraline 100 daily. trihexyphenidyl bid. novolin R SSI. Novolin N 26u bid. atenolol 25 daily (? per records, unclear if taking). Principal Diagnosis NSTEMI Discharge Exam Constitutional WD/WN, vitals as above Respiratory normal respiratory effort, lungs clear to auscultation Cardiovascular RRR, no murmur, no edema Gastrointestinal (Abdomen) normal bowel sounds, soft, nontender, no hepatosplenomegaly Psychiatric A+Ox3, euthymic affect Discharge Data Allergies Allergy/AdvReac Type Severity Reaction Status Date / Time No Known Allergies Allergy Unverified 12/24/21 20:04 Consultations 12/24/21 19:12 Consult Cardiology Routine ED Decision to Admit Stat 12/24/21 21:50 Consult Hand Iii Cutter Routine Procedures Performed Operation Date: 12/27/21 08:00 Actual Procedures s Cineradiography w/Routine Exam - Javier Nascimento MD p Cath, Left with Cors and Vent - Javier Nasciemnto MD p Drug Eluting Stent SGl Vessel - Javier Nascimento MD Ordered Studies 12/24/21 18:08 CT angio chest PE protocol Stat IMPRESSION: 1. No evidence of pulmonary embolism. 2. Tiny pulmonary nodules as above. According to Fleischner criteria, no follow-up is required in low risk patients, in high-risk patients, a 12 month follow-up CT can be optionally performed. 3. Emphysema. 12/27/21 06:41 CL Cath Imgs for PACS use only Routine Summary: 1. Acute 95% proximal OM1. 2. Mild to moderate nonculprit major epicardial vessel disease -40% mid RCA 3. Severe diffuse branch vessel disease involving very small diagonals, OM 2 (too small for intervention) 4. Normal intracardiac filling pressure 5. Successful PCI of proximal OM1 with single drug-eluting stent (2.5 x 15 mm [place]). Hospital Course (1) NSTEMI (non-ST elevated myocardial infarction): Ebenezer Aguilar is a 61 year old male admitted to [facility] from December 24 - 2021 due to chest pain. He was diagnosed with a non-ST elevation myocardial infarction. This was initially treated medically in the ICU with intravenous nitroglycerin and heparin. He underwent non-urgent catheterization on December 27 showing culprit disease with acute 95% proximal OM1 which was treated with successful drug-eluting stent placed. Multiple medication changes due to very high blood pressure during his inpatient stay (see below) with focus on anti-anginals due to residual disease. Lasix was discontinued but recommend restarting if showing symptoms/signs of heart failure however your fluid status is currently euvolemic and normal intracardiac filling pressures on cardiac catheterization. If starting SGLT2 inhibitor this should help reduce risk of heart failure and negate the need Lasix. Recommend dual antiplatelets for at least 6 months, but preferably 1 year then aspirin alone. Omeprazole switched to pantoprazole due to reduced efficacy of clopidogrel with omeprazole. He is noted to have residual coronary artery disease disease on cardiac catheterization with mild to moderate nonculprit major epicardial vessel disease - 40% mid RCA and severe diffuse branch vessel disease involving very small diagonals, OM 2 (too small for intervention). Regarding diabetes his HbA1C is 7.9. No changes to your insulin has been made but recommend addition of SGLT-2 inhibitor if available as [facility]. 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 He should slowly titrate up his exercise starting with walking. Recommend cardiology follow up in approximately 2 weeks. Incidental note was made of lung nodules. Given high risk patient recommend [address] chest for this. (2) Hypertension: (3) Hyperlipidemia: (4) Schizophrenia: (5) GERD (gastroesophageal reflux disease): (6) Diabetes type 2, uncontrolled: (7) Tobacco use disorder: (8) Lung nodules: Total Time Total Time Spent Total Time Spent (In Minutes): 50 Discharge Plan Discharge Items [facility] Disposition[facility] Reason For Visit: NSTEMI Discharge Diagnosis: NSTEMI - non ST elevation myocardial infarction (heart attack) Activity: Per Instructions section Non-emergency contact: Teleradiologist Call non-emergency contact if: you have any medication questions and your symptoms worsen Follow-up/Referrals: Perfecto Rivera DO [Physician] - 01/12/22 9:40 am (2 weeks NSTEMI follow up recommended) Loyda MAYER [Primary Care Provider] - Diet: Carb Consistent or DM2 and Heart Healthy Addtl Attending Provider Instructions: You were admitted to [facility] from December 24 - 2021 due to chest pain. You were diagnosed with a non-ST elevation myocardial infarction. This was initially treated medically. You underwent non-urgent catheterization on December 27 showing culprit disease with acute 95% proximal OM1 which was treated with successful drug-eluting stent placed. Multiple medication changes due to very high blood pressure during your inpatient stay (see below) with focus on anti-anginals due to residual disease. Lasix was discontinued but recommend restarting if showing symptoms/signs of heart failure however your fluid status is currently neutral and if starting SGLT2 inhibitor this should help reduce risk of heart failure. Recommend dual antiplatelets for at least 6 months, but preferably 1 year then aspirin alone. Omeprazole switched to pantoprazole due to reduced efficacy of clopidogrel with omeprazole. You also have residual disease on cardiac catheterization with mild to moderate nonculprit major epicardial vessel disease - 40% mid RCA and severe diffuse branch vessel disease involving very small diagonals, OM 2 (too small for intervention). Regarding diabetes your HbA1C is 7.9. No changes to your insulin has been made but recommend addition of SGLT-2 inhibitor if available. 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 He should slowly titrate up his exercise starting with walking. Recommend cardiology follow up in approximately 2 weeks. Incidental note was made of lung nodules. Given high risk patient recommend [address] chest for this. Pending Studies at Discharge: No Stand-Alone Forms: My [facility] Skilled Items Patient informed of condition?: Yes Discharge Level of Care: Other Communicable Disease: No Discharge Prognosis: Stable Lines: None Urinary Catheter: No Medications and DC Order Prescriptions: New amlodipine [Norvasc] 5 mg Tablet 5 mg PO QAM Qty: 30 0RF atorvastatin 80 mg tablet 80 mg PO DAILY Qty: 30 0RF clopidogrel 75 mg Tablet 75 mg PO QAM Qty: 30 0RF aspirin 81 mg tablet,delayed release (DR/EC) 81 mg PO DAILY Qty: 30 0RF carvedilol 3.125 mg Tablet 3.125 mg PO BID Qty: 60 0RF isosorbide mononitrate 60 mg Tablet Extended Release 24 Hr 60 mg PO QAM Qty: 30 0RF pantoprazole 40 mg Tablet,Delayed Release (Dr/Ec) 40 mg PO QAM Qty: 30 0RF Farxiga 5 mg tablet 5 mg PO DAILY Qty: 30 0RF Continued sertraline 100 mg Tablet 100 mg PO DAILY Novolin R Regular U-100 Insuln 100 unit/mL Solution 1 sliding scale dose SUBCUT USEASDIRECTD Rx Instructions: 200-250=2units, 251-300=4units, 301-350=6units, 351-400=8units, 401- 450=10units, 451-500=12units, >501 call md Elroy Garcia NPH U-100 Insulin 100 unit/mL Suspension 26 unit SUBCUT BID nitroglycerin [Nitrostat] 0.4 mg Tablet, Sublingual 0.4 mg sublingual QID PRN (Reason: Chest Pain) trihexyphenidyl 2 mg Tablet 2 mg PO BID lisinopril 40 mg Tablet 40 mg PO DAILY perphenazine 16 mg Tablet 16 mg PO HS Discontinued isosorbide dinitrate [Isordil] 10 mg Tablet 10 mg PO DAILY atorvastatin 40 mg Tablet 40 mg PO DAILY atenolol 25 mg Tablet 25 mg PO DAILY omeprazole 40 mg Capsule,Delayed Release(Dr/Ec) 40 mg PO DAILY furosemide [Lasix] 20 mg Tablet 20 mg PO DAILY Discharge Orders: Discharge Order (Routine); Ordered 12/28/21 Ordered By: Pérez Dao/Other Patient Handouts: Managing Type 2 Diabetes, Exercising After a Heart Attack Admission Data Admit Date/Time: 12/24/21 21:50 Attending Provider: Pérez Lopez Admit Provider: Joseluis Montoya Primary Care Provider: Loyda MAYER Other Providers: Jeromy Valdez ; Kev Sapp ; Isra Mcpherson Other Interventions: Discharge Summary Assessment (RN) Last Done: 12/28/21 13:38 Coding Level of Care Code D/C DAY MANAGEMENT >30 MINS Diagnoses NSTEMI (non-ST elevated myocardial infarction) I21.4 Hypertension I10 Hyperlipidemia E78.5 Schizophrenia F20.9 GERD (gastroesophageal reflux disease) K21.9 Diabetes type 2, uncontrolled Tobacco use disorder F17.200 Lung nodules R91.8
== END 2021-12-28 16:02 | DRG 247 ==
LOC: ED 16:53 → SUATTDRO 21:50 → 1E 21:50 → 2S 12-27 10:27

== ENCOUNTER 2025-02-16 20:28 | Observation (INO) ==
[2025-02-16 20:41] VITALS: TEMP 98.4
[2025-02-16 21:21] LABS: Hematocrit (blood only) 37.0 % (42.0-52.0); Hemoglobin 12.7 g/dl (14.0-18.0); Immature Granulocytes # (auto) 0.02 K/uL (0.01-0.20); Immature Granulocytes % (auto) 0.3 %; Mean Corpuscular Hemoglobin 27.7 pg (25.0-34.0); Mean Corpuscular Volume 80.8 fL (80.0-100.0); Platelet Count 245 K/uL (130-400); RDW Standard Deviation 41.2 fL (36.4-46.3); Red Blood Count 4.58 M/uL (4.70-6.10); White Blood Count 6.60 K/ul (4.8-10.8)
[2025-02-16 21:38] LABS: Alanine Aminotransferase 22.0 U/L (7-52); Albumin Globulin Ratio 1.4 (0.9-2); Alkaline Phosphatase 52.0 U/L (34-104); Anion Gap 8.0 (3-11); Bilirubin,Total 0.4 mg/dl (0.2-1.0); Blood Urea Nitrogen 26.0 mg/dl (6-23); Calcium 10.1 mg/dl (8.6-10.3); Carbon Dioxide 24.0 mmol/L (21-32); Chloride 106.0 mmol/L (98-107); Creatinine Clr Calc Pharmacy 60.8 ml/min; Globulin 3.1 gm/dl (2.5-4.0); Glucose 187.0 mg/dl (70-99(Fasting)); Lipase 24.0 U/L (11-82); Potassium 3.9 mmol/L (3.5-5.1); Sodium 138.0 mmol/L (136-145); Total Protein 7.4 gm/dl (6.0-8.3)
--- NOTE | 2025-02-16 21:43 | Emergency Department Note ---
Impression & Plan Chest pain ED Provider Note NAME: FANNY [id number] KIM AGE: 64 SEX: M : 1960 ARRIVES VIA: Ambulance INFORMANT: Patient, ED PROVIDER(S): Elmo Ross MD CHIEF COMPLAINT: Chest pain HPI: This is a 64-year-old male presenting for chest pain. Patient states that he had chest pain starting the past 2 to 3 days. He notes it is worse with exertion. He was taking nitroglycerin at home without any improvement in pain. He notes it is positional as well as worse with deep inspiration. He notes that he had similar pain in 2021 when he was seen for a heart attack. He had cardiac catheterization at that time. No longer on blood thinners at this time. ROS: See above HPI for pertinent positives & negatives. A total of 10 systems reviewed and were otherwise negative. PAST MEDICAL HISTORY: See Below PAST SURGICAL HISTORY: See Below FAMILY HISTORY: See Below SOCIAL HISTORY: See Below HOME MEDICATIONS: See Below ALLERGIES: See Below VITALS: See Below PHYSICAL EXAMINATION: General: resting comfortably in no acute distress Head: Normocephalic and atraumatic Eyes: Normal inspection, extraocular muscles intact Ear, nose, throat: Normal external exam Neck: Normal range of motion Respiratory: lungs clear to auscultation bilaterally Cardiovascular: Regular rate/rhythm, no murmur GI: soft, nontender, no guarding or rebound Extremities: nontender, moves all extremities Neuro: The patient awake and alert, appropriately conversive, no focal deficits, symmetric faces Skin: Warm, dry, and intact MEDICAL DECISION MAKING: This is an 64-year-old male presenting for chest pain. Will do screening blood work, EKG, CT angio to assess for PE based on borderline hypoxia as well as pleuritic chest pain - ECG independently interpreted by me with normal sinus rhythm, rate of 80, normal VT, normal QRS, normal QTc, no ST segment elevations consistent with STEMI criteria - Bloodwork is reviewed showing no significant leukocytosis, anemia, electrolyte or creatinine abnormality. Negative troponin - Patient CT imaging does not reveal large pulm embolism with my independent interpretation. - Based on patient's elevated heart score, previous risk factors will admit to the hospital for further ACS workup. Differential diagnosis: ACS, PE, dissection, pneumonia, pneumothorax Diagnostics interpreted by me: ECG: See above Cardiac Monitoring: An order was placed for continuous cardiac monitoring. The monitor shows a rate of 76 with sinus rhythm. Past Med/Surg History Problem List (Updated 02/16/25 @ 23:38 by Elmo Ross MD) CAD (coronary artery disease) Chest pain (Acute) Lung nodules Tobacco use disorder Diabetes type 2, uncontrolled GERD (gastroesophageal reflux disease) Schizophrenia Hyperlipidemia Hypertension NSTEMI (non-ST elevated myocardial infarction) (Acute) 2021 Medical History CAD (coronary artery disease) s/p PCI with BOONE to OM1 2021 (cath also showed 40% mid RCA stenosis, diffuse branch vessel disease involving small diagonals, OM2) Diabetes IDDM GERD (gastroesophageal reflux disease) Hepatitis C HTN (hypertension) Hx of non-ST elevation myocardial infarction (NSTEMI) 2021 Hyperlipidemia Inmate in correctional facility inmate at [facility] Lung nodules Schizophrenia Family History Father Myocardial infarction Mother Heart disease Social History Smoking Status: Former smoker Tobacco Type: E-cigarettes / Vaping Hx Alcohol Use: No Hx Substance Use: No Preferred Language: Samoan Human Services Manager Required: No Current Living Situation: Other Current Living Situation Comment: [facility] Feels Safe at Home: Hesitant to Answer Assistive Devices: None Allergies Allergies Allergy/AdvReac Type Severity Reaction Status Date / Time sodium chloride AdvReac Unknown CONTRAINDIC Verified 02/16/25 22:35 [From [place] Nasal] ATION Home Meds Home Medications Medication Instructions Recorded Confirmed insulin NPH isoph U-100 human 100 32 unit subcut BID 12/24/21 02/16/25 unit/mL subcutaneous suspension (Novolin N NPH U-100 Insulin isophane) insulin regular human 100 unit/mL 1 sliding scale dose subcut 12/24/21 02/16/25 injection solution (Novolin R USEASDIRECTD Regular U-100 Insulin) lisinopril 40 mg tablet 40 mg PO QAM 12/24/21 02/16/25 nitroglycerin 0.4 mg sublingual 0.4 mg sublingual QID PRN Chest 12/24/21 02/16/25 tablet (Nitrostat) Pain perphenazine 16 mg tablet 16 mg PO HS 12/24/21 02/16/25 sertraline 100 mg tablet 100 mg PO QAM 12/24/21 02/16/25 trihexyphenidyl 2 mg tablet 2 mg PO BID 12/24/21 02/16/25 atorvastatin 80 mg tablet 80 mg PO HS 07/10/24 02/16/25 amlodipine 10 mg tablet 10 mg PO DAILY 02/16/25 02/16/25 carvedilol 6.25 mg tablet 6.25 mg PO BID 02/16/25 02/16/25 celecoxib 200 mg capsule (Celebrex) 200 mg PO BID 02/16/25 02/16/25 isosorbide mononitrate 30 mg 60 mg PO DAILY 02/16/25 02/16/25 tablet,extended release 24 hr Previous Rx's Medication Instructions Recorded aspirin 81 mg tablet,delayed 81 mg PO DAILY #30 tabs 12/28/21 release dapagliflozin propanediol 5 mg 5 mg PO DAILY #30 tabs 12/28/21 tablet (Farxiga) Results & Data (ED) Vital Signs Vital Signs - 24 hr 02/16/25 20:31 02/16/25 20:31 02/16/25 20:35 Temperature 36.9 C Temperature Source Oral Pulse Rate 83 78 Pulse Rate from SpO2 Sensor Pulse Rhythm Regular Respiratory Rate 20 Respiratory Effort / Characteristics Non-Labored Spontaneous Respiratory Depth Normal Blood Pressure 140/93 Blood Pressure Mean 108 Pulse Oximetry 92 Oxygen Delivery Method Room Air Room Air Sepsis Recent Fever Within 48 Hours No Sepsis New/Unexplained Change in Mental Status No Sepsis Action Taken by Nursing No Action Required 02/16/25 20:36 02/16/25 20:36 02/16/25 20:36 Temperature Temperature Source Pulse Rate 84 Pulse Rate from SpO2 Sensor Pulse Rhythm Respiratory Rate 19 Respiratory Effort / Characteristics Respiratory Depth Blood Pressure 140/93 140/93 Blood Pressure Mean 110 110 Pulse Oximetry Oxygen Delivery Method Sepsis Recent Fever Within 48 Hours Sepsis New/Unexplained Change in Mental Status Sepsis Action Taken by Nursing 02/16/25 20:42 02/16/25 20:51 02/16/25 21:06 Temperature Temperature Source Pulse Rate 80 79 77 Pulse Rate from SpO2 Sensor 80 78 77 Pulse Rhythm Respiratory Rate 17 15 11 L Respiratory Effort / Characteristics Respiratory Depth Blood Pressure Blood Pressure Mean Pulse Oximetry 92 94 95 Oxygen Delivery Method Sepsis Recent Fever Within 48 Hours Sepsis New/Unexplained Change in Mental Status Sepsis Action Taken by Nursing 02/16/25 21:08 02/16/25 21:12 02/16/25 21:24 Temperature Temperature Source Pulse Rate 77 73 Pulse Rate from SpO2 Sensor 78 74 Pulse Rhythm Respiratory Rate 17 15 Respiratory Effort / Characteristics Respiratory Depth Blood Pressure Blood Pressure Mean Pulse Oximetry 93 94 Oxygen Delivery Method Room Air Sepsis Recent Fever Within 48 Hours Sepsis New/Unexplained Change in Mental Status Sepsis Action Taken by Nursing 02/16/25 21:33 02/16/25 21:42 02/16/25 22:08 Temperature Temperature Source Pulse Rate 75 75 Pulse Rate from SpO2 Sensor 75 75 Pulse Rhythm Respiratory Rate 14 13 Respiratory Effort / Characteristics Respiratory Depth Blood Pressure 143/107 H Blood Pressure Mean 113 Pulse Oximetry 93 96 Oxygen Delivery Method Sepsis Recent Fever Within 48 Hours Sepsis New/Unexplained Change in Mental Status Sepsis Action Taken by Nursing 02/16/25 22:08 02/16/25 22:08 02/16/25 22:09 Temperature Temperature Source Pulse Rate 74 Pulse Rate from SpO2 Sensor 73 Pulse Rhythm Respiratory Rate 14 Respiratory Effort / Characteristics Respiratory Depth Blood Pressure 143/107 H 143/107 H Blood Pressure Mean 113 113 Pulse Oximetry 94 Oxygen Delivery Method Sepsis Recent Fever Within 48 Hours Sepsis New/Unexplained Change in Mental Status Sepsis Action Taken by Nursing 02/16/25 22:15 02/16/25 22:21 02/16/25 22:30 Temperature Temperature Source Pulse Rate 76 Pulse Rate from SpO2 Sensor 77 79 74 Pulse Rhythm Respiratory Rate 16 14 5 L Respiratory Effort / Characteristics Respiratory Depth Blood Pressure Blood Pressure Mean Pulse Oximetry 87 L 95 95 Oxygen Delivery Method Sepsis Recent Fever Within 48 Hours Sepsis New/Unexplained Change in Mental Status Sepsis Action Taken by Nursing 02/16/25 22:31 02/16/25 22:57 02/16/25 23:09 Temperature Temperature Source Pulse Rate Pulse Rate from SpO2 Sensor 78 Pulse Rhythm Respiratory Rate 16 Respiratory Effort / Characteristics Respiratory Depth Blood Pressure 158/100 H 167/110 H Blood Pressure Mean 131 119 Pulse Oximetry 96 Oxygen Delivery Method Sepsis Recent Fever Within 48 Hours Sepsis New/Unexplained Change in Mental Status Sepsis Action Taken by Nursing 02/16/25 23:09 Temperature Temperature Source Pulse Rate Pulse Rate from SpO2 Sensor 72 Pulse Rhythm Respiratory Rate 19 Respiratory Effort / Characteristics Respiratory Depth Blood Pressure Blood Pressure Mean Pulse Oximetry 94 Oxygen Delivery Method Sepsis Recent Fever Within 48 Hours Sepsis New/Unexplained Change in Mental Status Sepsis Action Taken by Nursing Laboratory Data 02/16/25 20:35 02/16/25 20:35 Lab Results 02/16/25 Range/Units 20:35 WBC 6.60 (4.8-10.8) K/ul RBC 4.58 L (4.70-6.10) M/uL Hgb 12.7 L (14.0-18.0) g/dl Hct 37.0 L (42.0-52.0) % MCV 80.8 (80.0-100.0) fL MCH 27.7 (25.0-34.0) pg MCHC 34.3 (32.0-36.0) g/dL RDW Std Deviation 41.2 (36.4-46.3) fL RDW Coeff of Margarita 14.1 (11.5-14.5) % Plt Count 245 (130-400) K/uL MPV 10.0 (9.4-12.4) fL Immature Gran % (Auto) 0.3 % Neut % (Auto) 54.5 % Lymph % (Auto) 35.2 % [place] % (Auto) 8.9 % Eos % (Auto) 0.8 % Baso % (Auto) 0.3 % Neut # (Auto) 3.60 (1.40-6.50) K/uL Lymph # (Auto) 2.32 (1.20-3.40) K/uL [place] # (Auto) 0.59 (0.11-0.59) K/uL Eos # (Auto) 0.05 (0.00-0.50) K/uL Baso # (Auto) 0.02 (0.00-0.20) K/uL Immature Gran # (Auto) 0.02 (0.01-0.20) K/uL Sodium 138 (136-145) mmol/L Potassium 3.9 (3.5-5.1) mmol/L Chloride 106 (98-107) mmol/L Carbon Dioxide 24 (21-32) mmol/L Anion Gap 8 (3-11) BUN 26 H (6-23) mg/dl Creatinine 1.46 H (0.6-1.4) mg/dl Est Cr Clr Drug Dosing 60.8 ml/min eGFR 53.04 BUN/Creatinine Ratio 17.8 (10-20) Glucose 187 H (70-99(Fasting)) mg/dl Calcium 10.1 (8.6-10.3) mg/dl Magnesium 2.3 (1.7-2.4) mg/dl Total Bilirubin 0.4 (0.2-1.0) mg/dl AST 21 (13-39) U/L ALT 22 (7-52) U/L Alkaline Phosphatase 52 (34-104) U/L Troponin I High Sens 11.8 (0-20) pg/ml Total Protein 7.4 (6.0-8.3) gm/dl Albumin 4.3 (3.4-5.0) gm/dl Globulin 3.1 (2.5-4.0) gm/dl Albumin/Globulin Ratio 1.4 (0.9-2) Lipase 24 (11-82) U/L Administered Medications Lactated Ringer's (Lr) 1,000 mls @ 80 mls/hr IV .[id number] J LUIS Stop: 02/17/25 11:44 Last Admin: 02/16/25 23:30 Dose: 80 mls/hr Documented By: chivo Discontinued Medications Acetaminophen (Acetaminophen 325 Mg Tab) 650 mg PO NOW STA Stop: 02/16/25 23:13 Last Admin: 02/16/25 23:29 Dose: 650 mg Documented By: chivo Carvedilol (Carvedilol 6.25 Mg Tab) 6.25 mg PO NOW STA Stop: 02/16/25 23:24 Last Admin: 02/16/25 23:33 Dose: 6.25 mg Documented By: chivo Ioversol (Optiray 320 125ml) 119 ml IV ONCE ONE Stop: 02/16/25 22:08 Last Admin: 02/16/25 22:07 Dose: 119 ml Documented By: EDK Imaging Data Radiologist's Impression: Chest X-Ray 02/16/25 21:00 Exam(s): XR CXR 1 VIEW EXAM: XR Chest, 1 View CLINICAL HISTORY: Chest Pain, nonspecific. TECHNIQUE: Frontal view of the chest. COMPARISON: Chest radiographs 12/24/2021 FINDINGS: Lungs: Unremarkable. No consolidation. Pleural space: Unremarkable. No pneumothorax. Heart: Cardiomegaly. Mediastinum: Prominence of the mediastinum is likely accentuated by patient rotation. Bones/joints: There are degenerative changes of the spine. No acute fracture. IMPRESSION: 1. Cardiomegaly. 2. Prominence of the mediastinum is likely accentuated by patient rotation. Clinical correlation is recommended. Electronically signed by: Sasha Arnold MD 02/16/25 23:09 PM Discharge Plan Visit Data Chief Complaint: Cardiac Assessment Stated Complaint: L UPPER CHEST PAIN OVER FEW DAYS ED Provider: Elmo Ross Discharge Problem: Chest pain Patient Disposition: Admitted As Inpatient Condition: Fair Forms Stand Alone Forms: My [facility] Prescriptions Prescriptions: No Action atorvastatin 80 mg tablet 80 mg PO HS sertraline 100 mg Tablet 100 mg PO QAM Novolin R Regular U100 Insulin 100 unit/mL Solution 1 sliding scale dose SUBCUT USEASDIRECTD Rx Instructions: 200-250=2units, 251-300=4units, 301-350=6units, 351-400=8units, 401- 450=10units, 451-500=12units, >501 call md Elroy Garcia NPH U-100 Insulin 100 unit/mL Suspension 32 unit SUBCUT BID nitroglycerin [Nitrostat] 0.4 mg Tablet, Sublingual 0.4 mg sublingual QID PRN (Reason: Chest Pain) trihexyphenidyl 2 mg Tablet 2 mg PO BID lisinopril 40 mg Tablet 40 mg PO QAM perphenazine 16 mg Tablet 16 mg PO HS aspirin 81 mg tablet,delayed release (DR/EC) 81 mg PO DAILY Qty: 30 0RF dapagliflozin propanediol [Farxiga] 5 mg tablet 5 mg PO DAILY Qty: 30 0RF celecoxib [Celebrex] 200 mg Capsule 200 mg PO BID carvedilol 6.25 mg Tablet 6.25 mg PO BID Rx Instructions: must administer with a meal/food isosorbide mononitrate 30 mg Tablet Extended Release 24 Hr 60 mg PO DAILY amlodipine 10 mg Tablet 10 mg PO DAILY Referrals Referrals: Loyda MAYER [Primary Care Provider] -
[2025-02-16] MEDS: OPTIRAY 320 125ml IV ONE (22:07)
--- NOTE | 2025-02-16 23:00 | History & Physical Report ---
Date of Service February 16, 2025 Assessment & Plan (1) Chest pain: (2) CAD (coronary artery disease): (3) Hypertension: (4) Hyperlipidemia: Plan Patient is a 64-year-old male with past medical history of CAD s/p BOONE to OM1 in 2021, 50+ year smoking history, HTN, type II DM, GERD, schizophrenia. Patient presented due to 2 to 3 days of constant sharp chest pain that gets worse with exertion and was unrelieved by 3 nitroglycerin daily at the present. He was loaded with aspirin and route. He is being admitted for cardiac workup given elevated heart score however suspect some component may be musculoskeletal as pain is reproducible with palpation. #chest pain/CAD/HTN - Hx CAD s/p cardiac cath 12/2021 revealed 95% acute proximal OM1, 40% mid RCA, diffuse branch vessel disease involving small diagonals, OM 2; PCI with BOONE to proximal OM1. Initial troponin 11.8, heart score 4. EKG showed NSR, no ischemic changes. CXR shows cardiomegaly. Recent stress echo August 2024 revealed normal function, mild LVH, mild MR. CTA pending at time of admission K+ 3.9, magnesium ordered Repeat troponin with a.m. labs A1c and lipid panel with a.m. labs EKG with chest pain as needed Nitroglycerin SL as needed Echocardiogram ordered - Tylenol given on admission; continue prn Loaded with aspirin via EMS, continue baby aspirin daily Continue carvedilol, isosorbide mononitrate, statin, amlodipine, lisinopril #Mild renal insufficiency creatinine increased from 1.26-1.46. Electrolytes stable. 1L LR 80 mL/hour Repeat BMP with a.m. labs #Type II DM hold Farxiga, continue NPH and SSI. #Mental health continue sertraline, perphenazine VTE ppx: SCDs, low risk Dispo: med/telemetry Admission and Anticipated Discharge Date Admission Date: 02/16/25 History of Present Illness Chief Complaint: cardiac assessment Primary Care Provider: MORENO Scales Patient is a 64-year-old male with past medical history of CAD s/p BOONE to OM1 in 2021, 50+ year smoking history, HTN, type II DM, GERD, schizophrenia. Patient presented due to 2 to 3 days of constant sharp chest pain that gets worse with exertion and was unrelieved by 3 nitroglycerin daily at the present. He was loaded with aspirin and route. He is being admitted for cardiac workup including echocardiogram however suspect some component of chest pain may be musculoskeletal. Patient seen at bedside with [facility] guards present. He stated about 2 to 3 days ago he developed sharp chest pain that has been constant in nature since. He has been taking approximately 3 nitroglycerin daily at the present to help relieve this however stated it did not help. He also endorses shortness of breath which does get worse with exertion. The chest pain also gets worse with exertion like when he is walking to the bathroom or mopping. he stated he has been mopping for a while and this is not a new task for him. He also endorses dizziness on exertion. He stated he does not entertain any strenuous exercise like push-ups or jumping jacks however he does try to walk daily and denies any dyspnea or chest pain with exertion over the past few months until the recently. Chest pain was reproducible with palpation; patient denies any trauma to the area, recent heavy lifting/strain - other than the mopping. He denies any nausea associated with pain. He was a former smoker stating that he smoked for approximately 50 years, denies current use. He did not take his evening medications yet, will order on admission. Allergies Allergy/AdvReac Type Severity Reaction Status Date / Time sodium chloride AdvReac Unknown CONTRAINDIC Verified 02/16/25 22:35 [From [employer] Nasal] ATION Home Medications Medication Instructions Recorded Confirmed Type insulin NPH isoph U-100 human 100 32 unit subcut BID 12/24/21 02/16/25 History unit/mL subcutaneous suspension (Novolin N NPH U-100 Insulin isophane) insulin regular human 100 unit/mL 1 sliding scale dose subcut 12/24/21 02/16/25 History injection solution (Novolin R USEASDIRECTD Regular U-100 Insulin) lisinopril 40 mg tablet 40 mg PO QAM 12/24/21 02/16/25 History nitroglycerin 0.4 mg sublingual 0.4 mg sublingual QID PRN Chest 12/24/21 02/16/25 History tablet (Nitrostat) Pain perphenazine 16 mg tablet 16 mg PO HS 12/24/21 02/16/25 History sertraline 100 mg tablet 100 mg PO QAM 12/24/21 02/16/25 History trihexyphenidyl 2 mg tablet 2 mg PO BID 12/24/21 02/16/25 History aspirin 81 mg tablet,delayed 81 mg PO DAILY #30 tabs 12/28/21 02/16/25 Rx release dapagliflozin propanediol 5 mg 5 mg PO DAILY #30 tabs 12/28/21 02/16/25 Rx tablet (Farxiga) atorvastatin 80 mg tablet 80 mg PO HS 07/10/24 02/16/25 History amlodipine 10 mg tablet 10 mg PO DAILY 02/16/25 02/16/25 History carvedilol 6.25 mg tablet 6.25 mg PO BID 02/16/25 02/16/25 History celecoxib 200 mg capsule (Celebrex) 200 mg PO BID 02/16/25 02/16/25 History isosorbide mononitrate 30 mg 60 mg PO DAILY 02/16/25 02/16/25 History tablet,extended release 24 hr Past Med/Surg History Problem List (Updated 02/16/25 @ 23:38 by Elmo Ross MD) CAD (coronary artery disease) Chest pain (Acute) Lung nodules Tobacco use disorder Diabetes type 2, uncontrolled GERD (gastroesophageal reflux disease) Schizophrenia Hyperlipidemia Hypertension NSTEMI (non-ST elevated myocardial infarction) (Acute) 2021 Medical History CAD (coronary artery disease) s/p PCI with BOONE to OM1 2021 (cath also showed 40% mid RCA stenosis, diffuse branch vessel disease involving small diagonals, OM2) Diabetes IDDM GERD (gastroesophageal reflux disease) Hepatitis C HTN (hypertension) Hx of non-ST elevation myocardial infarction (NSTEMI) 2021 Hyperlipidemia Inmate in correctional facility inmate at [facility] Lung nodules Schizophrenia Family History Father Myocardial infarction Mother Heart disease Social History Smoking Status: Former smoker Tobacco Type: E-cigarettes / Vaping Hx Alcohol Use: No Hx Substance Use: No Preferred Language: Grenadian Form Tamper Required: No Current Living Situation: Other Current Living Situation Comment: [facility] Feels Safe at Home: Hesitant to Answer Assistive Devices: None Review of Systems Review of Systems: see HPI Physical Exam Physical Exam: The patient is awake, alert and oriented 3, well developed and well nourished, normocephalic and atraumatic, in no acute distress. Non-toxic appearing. HEENT- EOMI, mucous membranes moist. Hearing grossly intact. Heart-normal S1 and S2. No murmurs, rubs or gallops. Tenderness to palpation of left upper chest region. Lungs-decreased bilaterally, no respiratory distress, no accessory muscle use. Abdomen-normal bowel sounds and soft. No ascites noted. Non-tender. Extremities- no clubbing, cyanosis, or edema. Rheumatologic-normal range of motion. Psychiatric-normal affect. Results & Data Results & Data Vital Signs (Past 12 Hours) Vital Signs Temp Pulse Resp BP Pulse Ox O2 Del Method 02/16/25 21:33 75 14 93 02/16/25 21:24 73 15 94 02/16/25 21:12 77 17 93 02/16/25 21:08 Room Air 02/16/25 21:06 77 11 L 95 02/16/25 20:51 79 15 94 02/16/25 20:42 80 17 92 02/16/25 20:36 84 19 02/16/25 20:36 140/93 02/16/25 20:36 140/93 02/16/25 20:35 78 02/16/25 20:31 Room Air 02/16/25 20:31 36.9 C 83 20 140/93 92 Room Air Laboratory Results Reviewed CBC, CMP, troponin Diagnostic Findings CXR and CTA pending at time of admission Medications Administered AMSaspirin 325 mg p.o. EDnone ECG Additional Comments: NSR, T wave inversions from 2021 resolved Rate 80 QTc 426 Code Status & VTE Plan Code Status full code VTE Prophylaxis Plan VTE Prophylaxis will be ordered: Yes Supervising Physician Co-Signing Physician Notes Attending addendum: I have physically seen this patient, have supervised the LUZ ELENA's activities, and agree with the H&P unless as otherwise noted. Assessment and Plan: The patient is a 64-year-old male resident of [place], with past medical history including CAD status post BOONE to OM1 in 2021, 50+ year smoking history, hypertension, diabetes mellitus type 2, GERD and schizophrenia. He presents to the emergency department 2 to 3 days of constant sharp left-sided chest pain that is worse with exertion. He did take sublingual nitroglycerin x 3 daily during this interval of time with no significant improvement in chest pain. He was given 324 mg of aspirin and route to the hospital by EMS. He is referred for evaluation for admission to the [facility]. Chest pain/CAD/hypertension/history of BOONE to OM1 occlusion, 40% mid RCA r emaining, and diffuse branch vessel disease involving small diagonals OM 2- Troponin 11.8 upon admission, with follow-up pending EKG shows normal sinus rhythm at 80, with no acute ST-T changes Chest x-ray showed mild cardiomegaly and no signs of CHF Most recent stress echocardiogram on 08/22/2024 showed normal function, mild LVH, and mild MR. CT angio PE protocol this evening in the ED was negative for PE. Did show emphysema. Dense coronary artery calcifications were present. Continue carvedilol, isosorbide mononitrate, amlodipine and lisinopril. Given 324 mg of aspirin and route to the hospital Continue aspirin 81 mg daily Acetaminophen 650 mg by mouth every 6 hours as needed for mild pain or fever Acute kidney injury superimposed on CKD- Creatinine 1.46 on admission with base 1.26 LR at 80 mL/h x 1 L Repeat laboratories in the a.m. Diabetes mellitus type 2- For now hold Farxiga Continue NPH and SSI Mental health/schizophrenia- Continue sertraline, perphenazine, and trihexyphenidyl Hemorrhoids- Patient was seen by Dr. Flores from general surgery on 02/27, and is to be scheduling a hemorrhoidectomy at some point in the near future PG Care Time/CCT Total # of Minutes Spent Total Time Spent with Patient: Total time spent is greater than 50% in coordination of care (as documented) at patient's floor/unit and/or counseling patient: Coding Level of Care Code 01958 INT INP/OBS CARE 3/75MIN Diagnoses Chest pain R07.9 CAD (coronary artery disease) I25.10 Hypertension I10 Hyperlipidemia E78.5
--- NOTE | 2025-02-16 23:10 | XRay Report ---
Exam(s): XR CXR 1 VIEW EXAM: XR Chest, 1 View CLINICAL HISTORY: Chest Pain, nonspecific. TECHNIQUE: Frontal view of the chest. COMPARISON: Chest radiographs 12/24/2021 FINDINGS: Lungs: Unremarkable. No consolidation. Pleural space: Unremarkable. No pneumothorax. Heart: Cardiomegaly. Mediastinum: Prominence of the mediastinum is likely accentuated by patient rotation. Bones/joints: There are degenerative changes of the spine. No acute fracture. IMPRESSION: 1. Cardiomegaly. 2. Prominence of the mediastinum is likely accentuated by patient rotation. Clinical correlation is recommended. Electronically signed by: Sasha Arnold MD 02/16/25 23:09 PM
[2025-02-16] MEDS: ACETAMINOPHEN 325 MG TAB PO STA (23:29)
[2025-02-16] MEDS: LACTATED RINGER'S 1,000 ML IV SCH (23:30)
[2025-02-16 23:36] LABS: Magnesium 2.3 mg/dl (1.7-2.4)
--- NOTE | 2025-02-16 23:59 | CT Scan Report ---
Exam(s): CTA CHEST IV Amt: 119ML OPTIRAY 320 EXAM: CT Angiography Chest With Intravenous Contrast CLINICAL HISTORY: PE. TECHNIQUE: Axial computed tomographic angiography images of the chest with intravenous contrast. MIPS images were created and reviewed. CTDI is 28. 14 mGy and DLP is 880.67 mGy-cm. Automated exposure control was utilized for the study. A dose lowering technique was utilized adhering to the principles of ALARA. MIP reconstructed images were created and reviewed. COMPARISON: CT chest 07/28/2023. FINDINGS: Pulmonary arteries: Unremarkable. No pulmonary embolus. Aorta: Minimal atherosclerotic calcifications. No thoracic aortic aneurysm. Lungs: Emphysema is noted. No mass. No consolidation. Pleural space: Unremarkable. No significant effusion. No pneumothorax. Heart: Dense coronary artery calcifications are present. No cardiomegaly. No significant pericardial effusion. No evidence of RV dysfunction. Bones/joints: There are degenerative changes of the spine. No acute fracture. No dislocation. Soft tissues: Unremarkable. Lymph nodes: Unremarkable. No enlarged lymph nodes. IMPRESSION: 1. No pulmonary embolus. 2. Emphysema is noted. Emphysema is an independent risk factor for lung cancer. Recommend evaluation for low dose lung cancer screening protocol. 3. Dense coronary artery calcifications are present. Consider cardiology referral. Electronically signed by: Sasha Arnold MD 02/16/25 23:58 PM
[2025-02-17] MEDS ORDERED: GLUCOSE 40% GEL 15 GM TUBE PO PRN (01:30)
[2025-02-17] MEDS ORDERED: DEXTROSE 50% 50 ML SYRINGE IV PRN (01:30)
[2025-02-17] MEDS ORDERED: CARBOHYDRATES FOR HYPOGLYCEMIA PO PRN (01:30)
[2025-02-17] MEDS ORDERED: GLUCAGON FOR INJ 1 MG VIAL SQ PRN (01:30)
[2025-02-17] MEDS ORDERED: MELATONIN 3 MG TAB PO PRN (01:30)
[2025-02-17] MEDS ORDERED: ONDANSETRON INJ 2 MG/ML 2 ML VIAL IV PRN (01:30)
[2025-02-17] MEDS ORDERED: POLYETHYLENE (MIRALAX) 17 GM PACK PO PRN (01:30)
[2025-02-17] MEDS ORDERED: GLUCOSE 10 TAB/TUBE PO PRN (01:30)
[2025-02-17] MEDS ORDERED: NITROGLYCERIN SL 0.4 MG/TAB TAB SL PRN (01:30)
[2025-02-17] MEDS: INSULIN HUMAN NPH SQ SCH (01:59)
[2025-02-17] MEDS: PERPHENAZINE 4 MG TAB PO SCH (02:11)
[2025-02-17] MEDS: CeleBREX 200 MG CAP PO SCH (02:12)
[2025-02-17] MEDS: TRIHEXYPHENIDYL HCL 2 MG TAB PO SCH (02:12)
[2025-02-17] MEDS: ATORVASTATIN 40 MG TAB PO SCH (02:12)
[2025-02-17 04:21] LABS: Hematocrit (blood only) 37.0 % (42.0-52.0); Hemoglobin 12.7 g/dl (14.0-18.0); Immature Granulocytes # (auto) 0.03 K/uL (0.01-0.20); Immature Granulocytes % (auto) 0.5 %; Mean Corpuscular Hemoglobin 28.0 pg (25.0-34.0); Mean Corpuscular Volume 81.7 fL (80.0-100.0); Platelet Count 230 K/uL (130-400); RDW Standard Deviation 41.9 fL (36.4-46.3); Red Blood Count 4.53 M/uL (4.70-6.10); White Blood Count 6.13 K/ul (4.8-10.8)
[2025-02-17 04:28] VITALS: RESP 14
[2025-02-17 04:38] LABS: Anion Gap 6.0 (3-11); Blood Urea Nitrogen 24.0 mg/dl (6-23); Calcium 9.3 mg/dl (8.6-10.3); Carbon Dioxide 23.0 mmol/L (21-32); Chloride 107.0 mmol/L (98-107); Cholesterol 192.0 mg/dl (0-200); Creatinine Clr Calc Pharmacy 63.4 ml/min; Glucose 202.0 mg/dl (70-99(Fasting)); HDL Cholesterol 26.0 mg/dl; Magnesium 2.2 mg/dl (1.7-2.4); Potassium 4.1 mmol/L (3.5-5.1); Sodium 136.0 mmol/L (136-145); Triglycerides 312.0 mg/dl (0-150)
[2025-02-17 05:42] VITALS: O2SAT 94
[2025-02-17 07:01] VITALS: PULSE 72
[2025-02-17] MEDS: INSULIN ASPART PER UNIT CHARGE SC SCH (08:26)
[2025-02-17] MEDS: ISOSORBIDE MONO EXTENDED REL 60 MG TABCR PO SCH (08:28)
[2025-02-17] MEDS: SERTRALINE HCL 100 MG TABLET PO SCH (08:29)
[2025-02-17] MEDS: ASPIRIN 81 MG ECTAB PO SCH (08:30)
[2025-02-17] MEDS: ACETAMINOPHEN 325 MG TAB PO PRN (08:32)
[2025-02-17 08:53] LABS: Hemoglobin A1C 7.4 % (4.5-5.6)
--- NOTE | 2025-02-17 09:10 | Discharge Summary ---
Discharge Summary Date of Service February 17, 2025 Principal Dx & Hospital Course #1 = Principal Diagnosis (1) Chest pain: Palpable upper left parasternal chest pain. Troponin levels are normal and not trending. No acute EKG changes on 2 separate tracings. This appears to be costochondritis. A short course of ibuprofen may help with his symptoms. He should not take Celebrex while taking the ibuprofen (2) CAD (coronary artery disease): With stents. Continue current medical management (3) Hypertension: Stable. Continue current medical management (4) Hyperlipidemia: Stable. Continue statin therapy Plan Return to [facility] today, February 17 Admission HPI Per Admitting Provider Patient is a 64-year-old male with past medical history of CAD s/p BOONE to OM1 in 2021, 50+ year smoking history, HTN, type II DM, GERD, schizophrenia. Patient presented due to 2 to 3 days of constant sharp chest pain that gets worse with exertion and was unrelieved by 3 nitroglycerin daily at the present. He was loaded with aspirin and route. He is being admitted for cardiac workup including echocardiogram however suspect some component of chest pain may be musculoskeletal. Patient seen at bedside with nursing home guards present. He stated about 2 to 3 days ago he developed sharp chest pain that has been constant in nature since. He has been taking approximately 3 nitroglycerin daily at the present to help relieve this however stated it did not help. He also endorses shortness of breath which does get worse with exertion. The chest pain also gets worse with exertion like when he is walking to the bathroom or mopping. he stated he has been mopping for a while and this is not a new task for him. He also endorses dizziness on exertion. He stated he does not entertain any strenuous exercise like push-ups or jumping jacks however he does try to walk daily and denies any dyspnea or chest pain with exertion over the past few months until the recently. Chest pain was reproducible with palpation; patient denies any trauma to the area, recent heavy lifting/strain - other than the mopping. He denies any nausea associated with pain. He was a former smoker stating that he smoked for approximately 50 years, denies current use. He did not take his evening medications yet, will order on admission. Discharge Plan Discharge Items [facility]position[facility] Reason For Visit: CHEST PAIN Discharge Diagnosis: Noncardiac chest pain, suspected costochondritis Condition on Discharge: Good Activity: Per Instructions section Activity Comment: Avoid any activities that aggravate presumed costochondritis Non-emergency contact: Primary Care Provider Call non-emergency contact if: your symptoms worsen Follow-up/Referrals: Loyda MAYER [Primary Care Provider] - Diet: Carb Consistent or DM2 and Heart Healthy Addtl Attending Provider Instructions: Chest discomfort is noncardiac. It appears to be costochondritis. A short course of ibuprofen might be beneficial. Do not take Celebrex while taking ibuprofen. All other medications remain the same. Pending Studies at Discharge: Yes Studies:: Cardiac echo report Skilled Items Patient informed of condition?: Yes DNR: No Discharge Level of Care: Other Communicable Disease: No Discharge Prognosis: Stable Lines: None Urinary Catheter: No Medications and DC Order Prescriptions: Continued atorvastatin 80 mg tablet 80 mg PO HS sertraline 100 mg Tablet 100 mg PO QAM Novolin R Regular U100 Insulin 100 unit/mL Solution 1 sliding scale dose SUBCUT USEASDIRECTD Rx Instructions: 200-250=2units, 251-300=4units, 301-350=6units, 351-400=8units, 401- 450=10units, 451-500=12units, >[address] Elroy Garcia NPH U-100 Insulin 100 unit/mL Suspension 32 unit SUBCUT BID nitroglycerin [Nitrostat] 0.4 mg Tablet, Sublingual 0.4 mg sublingual QID PRN (Reason: Chest Pain) trihexyphenidyl 2 mg Tablet 2 mg PO BID lisinopril 40 mg Tablet 40 mg PO QAM perphenazine 16 mg Tablet 16 mg PO HS aspirin 81 mg tablet,delayed release (DR/EC) 81 mg PO DAILY Qty: 30 0RF dapagliflozin propanediol [Farxiga] 5 mg tablet 5 mg PO DAILY Qty: 30 0RF celecoxib [Celebrex] 200 mg Capsule 200 mg PO BID carvedilol 6.25 mg Tablet 6.25 mg PO BID Rx Instructions: must administer with a meal/food isosorbide mononitrate 30 mg Tablet Extended Release 24 Hr 60 mg PO DAILY amlodipine 10 mg Tablet 10 mg PO DAILY Admission Data Admit Date/Time: 02/16/25 23:18 Attending Provider: Puneet Anaya Admit Provider: Jeromy Valdez Primary Care Provider: Loyda MAYER Other Providers: Jeromy Valdez Hospital Stay Data Consultations 02/16/25 23:00 ED Decision to Admit Stat Diagnostic Imagining Performed 02/16/25 21:14 CT for pulmonary embolism PE [CT angio chest PE protocol] Stat Pending Results Patient Have Any Pending Studies at Discharge: Yes Discharge Instructions Given to Patient (Per Discharging Provider) Chest discomfort is noncardiac. It appears to be costochondritis. A short course of ibuprofen might be beneficial. Do not take Celebrex while taking ibuprofen. All other medications remain the same. Total Time Total Time Spent Total Time Spent (In Minutes): 45 minutes Coding Level of Care Code 20634 INP/OBS DISCH >30 MIN Diagnoses Chest pain R07.9 CAD (coronary artery disease) I25.10 Hypertension I10 Hyperlipidemia E78.5
[2025-02-17 09:11] VITALS: BP 126/87
--- NOTE | 2025-02-17 16:47 | XCELERA ---
[id number]
== END 2025-02-17 09:10 ==
LOC: SUATTDRO → ED 20:28 → EDINP 20:28 → SUATTDRO 23:18 → EDINP 02-17 01:30